=== PATIENT | female | born 1940 | race Caucasian/White ===

== ENCOUNTER 2023-05-12 09:01 | Day surgery (SDC) | payer MEDICARE, SELFPAY ==
[2023-05-12 09:21] VITALS: BP 181/92; PULSE 95; RESP 18; TEMP 36.4; O2SAT 96; BMI 26.9
[2023-05-12 10:22] VITALS: BP 181/92; PULSE 95; RESP 18; TEMP 36.4; O2SAT 96
== END 2023-05-12 10:23 | disposition home or self-care (01) ==
PROVIDERS: PCP Family Medicine; Visit Provider Ophthalmology
PROC: (CPT 66821; principal; 2023-05-12 09:00)
DX: H26.40 Unspecified secondary cataract (principal)
CPT/HCPCS: 66821

== ENCOUNTER 2024-01-27 22:12 | Inpatient (IN) | payer MEDICARE, SELFPAY ==
[2024-01-27 22:13] VITALS: BP 197/95; PULSE 90; RESP 26; TEMP 36.7; O2SAT 93; BMI 29.1
--- NOTE | 2024-01-27 22:20 | ECG_ITS ---
APPROVED REPORT Exam: Resting ECG HR:92 bpm ECG Measurements Heart Rate 92 AXES DC 142 P 84 QRSd 85 QRS 33 QT 343 T 53 QTc 392 Conclusion SINUS RHYTHM LOW QRS VOLTAGE IN EXTREMITY LEADS [QRS DEFLECTION < 0.5 mV IN LIMB LEADS] BORDERLINE ECG Electronically signed by : LUBA TAYLOR, 01/28/2024 13:32:20
--- NOTE | 2024-01-27 22:20 | PC.NURSE ---
rad finished with portable cxr. RT at bedside for 3x duoneb treatments.
[2024-01-27 22:21] VITALS: BMI 30.9
--- NOTE | 2024-01-27 22:22 | XR_ITS ---
PROCEDURE INFORMATION: Exam: XR Chest Exam date and time: 01/27/2024 10:21 PM Age: 84 years old Clinical indication: Shortness of breath; Additional info: SOA TECHNIQUE: Imaging protocol: Radiologic exam of the chest. Views: 1 view. COMPARISON: No relevant prior studies available. FINDINGS: Lungs: The lungs are hyperexpanded bilaterally consistent with mild COPD. The lungs are clear. Pleural spaces: There is no evidence for pneumothorax. Heart/Mediastinum: The heart size is within normal limits. Bones/joints: Unremarkable. IMPRESSION: 1. The lungs are clear. 2. The lungs are hyperexpanded bilaterally consistent with mild COPD. 3. There is no evidence for pneumothorax.
--- OUTSIDE RECORDS SUMMARY | 2024-01-27 22:22 | XMS_ITS ---
Author Name Bernardo Wiley Address [address] [place] [id number] Organization Unknown Address [address] [place] [id number] ALLERGIES AND ADVERSE REACTIONS No information ASSESSMENT No information CHIEF COMPLAINT No information MEDICATIONS No information OBJECTIVE DATA No information PHYSICAL EXAMINATION No information TREATMENT PLAN Planned Care Start Date Provider Encounter for Check-up [id number] AC Dye PROBLEMS No information RESULTS No information REVIEW OF SYSTEMS No information SUBJECTIVE DATA No information VITAL SIGNS No information
--- NOTE | 2024-01-27 22:26 | [facility].EDCP ---
Discharge Plan Disposition Patient Disposition: Admitted Prescriptions Prescriptions: No Action pravastatin 20 MG tablet 20 mg PO DAILY Referrals Follow up/Referrals: Hanna Dye MD [Primary Care Provider] - See instructions Clinical Impressions Clinical Impression: Acute exacerbation of chronic obstructive pulmonary disease, Respiratory failure with hypoxia and hypercapnia Discharge ED Provider: Maury Riley HPI <Maury Riley MD - Last Filed: 01/27/24 23:04> General Chief Complaint: Shortness of Breath/Dyspnea Stated Complaint: SOA, cough Time Seen by Provider: 01/27/24 22:14 History of Present Illness HPI narrative: Patient is a 84-year-old female largely healthy only takes cholesterol medicine at home multi pack-year smoker who presents emergency department for evaluation of shortness of breath and cough. Onset was acute over the last 3 days. Has had progressive shortness of breath. No chest pain. Has never been diagnosed with COPD and does not take any controller inhalers. No other acute complaints at this time. Related Data Home Medications Medication Instructions Recorded Confirmed pravastatin 20 mg tablet 20 mg PO DAILY Cholesterol 09/06/19 05/12/23 Allergies Allergy/AdvReac Type Severity Reaction Status Date / Time No Known Allergies Allergy Verified 01/27/24 22:26 PFSH <Maury Riley MD - Last Filed: 01/27/24 23:04> [facility] Disclaimer: The information contained in this section may have been updated after the patient was seen, as this information can be updated by other users. Medical History (Updated 01/27/24 @ 22:47 by Maury Riley MD) Hyperlipemia Cataract Surgical History Hx of cataract surgery Family History Other Family history of cancer Social History Smoking Status: Current every day smoker tobacco type: cigarettes packs per day: 1 alcohol intake: never current occupational status: retired Travel in the last 8 weeks: None household members: spouse housing: house caffeine: No <Maury Riley MD - Last Filed: 01/27/24 23:04> ROS Obtained: Yes Systems reviewed as appropriate & no additional complaints except as documented Physical Exam <Maury Riley MD - Last Filed: 01/27/24 23:04> General General appearance: alert and in distress Head Head exam: atraumatic and normocephalic Eye Eye exam: Present PERRL ENT ENT exam: Present mucous membranes moist Neck Neck exam: Present normal inspection Chest Chest inspection: Present normal inspection and symmetric chest wall rise Respiratory Respiratory exam: Present respiratory distress, wheezes, accessory muscle use and prolonged expiratory phase Cardiovascular Cardiovascular exam: Present regular rate and normal rhythm Abdominal Exam Abdominal exam: Present soft; Absent tenderness Extremities Exam Extremities exam: Present normal inspection and other (No lower extremity edema) Neurological Exam Neurological exam: Present alert Psychiatric Psychiatric exam: Present anxious Skin Skin exam: Present warm and dry HEART Score <Maury Riley MD - Last Filed: 01/27/24 23:04> HEART Score HEART Score assessment performed?: No History (anamnesis): Slightly suspicious ECG: Normal Age: >65 years Risk factors: No known risk factors <Ella Macias MD - Last Filed: 01/27/24 23:18> HEART Score HEART Score assessment performed?: Yes Troponin: </= normal limit HEART Score: 2 Critical Care <Maury Riley MD - Last Filed: 01/27/24 23:04> Critical Care Time Critical Care Time: Yes Attestation: On 01/27/24, the high probability of a clinically significant, sudden or life threatening deterioration of the following system(s) required my full and direct attention, intervention and personal management. The time I documented below is in addition to time spent performing reported procedures but includes the following listed in this critical care notation. Total Time Total Critical Care Time: 35 Medical Decision Making <Maury Riley MD - Last Filed: 01/27/24 23:04> [place] Inquiry Pt receiving controlled substance: No Vital Signs Vital Signs: 01/27/24 22:13 01/27/24 22:31 01/27/24 22:55 Temperature 98.0 F Temperature Source Oral Pulse Rate 93 H 101 H Pulse Rate [Left] 90 Respiratory Rate 26 H Blood Pressure [Right Arm] 197/95 H Blood Pressure Mean [Right Arm] 129 02 Sat by Pulse Oximetry 93 L Oxygen Delivery Method Nasal Cannula Oxygen Flow Rate (LPM) 2 Lab Data Labs: Lab Results 01/27/24 22:26: WBC 10.2, RBC 4.38, Hgb 14.6, Hct 43.9, MCV 100.3 H, MCH 33.5 H, MCHC 33.4, RDW 13.2, Plt Count 227, MPV 7.4, Neut % (Auto) 84.4 H, Lymph % (Auto) 11.0, Freeborn % (Auto) 3.9, Eos % (Auto) 0.3, Baso % (Auto) 0.4, Neut # (Auto) 8.6 H, Lymph # (Auto) 1.1, Freeborn # (Auto) 0.4, Eos # (Auto) 0.0, Baso # (Auto) 0.0, Sodium 134 L, Potassium 4.1, Chloride 97 L, Carbon Dioxide 29, Anion Gap 12.1, BUN 18 H, Creatinine 0.70, Estimated Creat Clear 54, Estimated GFR 80, Est GFR ( Amer) 97, Glucose 142 H, Lactate 1.4, Calcium 9.2, Total Bilirubin 0.6, AST 35, ALT 25, Alkaline Phosphatase 153 H, Troponin I < 0.01, NT-Pro-B Natriuret Pep 341, Total Protein 7.4, Albumin 4.4, Globulin 3.0, Albumin/Globulin Ratio 1.5 01/27/24 22:27: SARS-CoV-2 (PCR) Not detected, Influenza A Untype (PCR) Not detected, Influenza Type B (PCR) Not detected 01/27/24 22:28: VBG pH 7.29 L, VBG pCO2 51.7 H, VBG pO2 38.5, VBG HCO3 24.1, VBG Total CO2 25.7, VBG O2 Saturation 71.5 H, VBG Base Excess -2.5 L, VBG Lactic Acid 1.6 01/27/24 22:26 01/27/24 22:26 Response Orders (Tests/Meds): ED MEDICATIONS Generic Name Dose Route Start Last Admin Trade Name Freq PRN Reason Stop Dose Admin Acetaminophen 650 mg 01/27/24 23:01 Acetaminophen 325mg Tab PO 02/26/24 23:00 Q4HP PRN Fever or Mild Pain (1-3) Albuterol/Ipratropium 3 ml 01/27/24 23:06 Ipratropium/Albuterol 3 Ml Neb 02/26/24 23:05 Q6HP PRN Shortness Of Breath Enoxaparin Sodium 40 mg 01/28/24 09:00 Enoxaparin 40mg/0.4ml Syringe SQ 02/27/24 08:59 DAILY ESPERANZA Magnesium Sulfate 2 gm in 50 mls @ 50 mls/hr 01/27/24 22:39 01/27/24 22:43 Magnesium Sulfate 2gm/50ml Premix IV 01/27/24 23:38 50 mls/hr ONCE ONE Administration Sodium Chloride 1,000 mls @ 50 mls/hr 01/27/24 23:15 Sod Chlor 0.9% 1000ml Bag IV 02/26/24 23:14 .Q20H ESPERANZA Morphine Sulfate 2 mg 01/27/24 23:01 Morphine 2mg/Ml Syringe IV 02/26/24 23:00 Q2HP PRN Severe Pain (7-10) Nicotine 21 mg 01/27/24 23:01 Nicotine 21mg/24hr Patch TD 02/26/24 23:00 DAILYP PRN Nicotine Cravings Ondansetron HCl 4 mg 01/27/24 23:01 Ondansetron 4mg/2ml Vial IV 02/26/24 23:00 Q8HP PRN Nausea Pantoprazole Sodium 40 mg 01/28/24 09:00 Pantoprazole 40mg Tablet PO 02/27/24 08:59 DAILY ESPERANZA Discontinued Medications Generic Name Dose Route Start Last Admin Trade Name Freq PRN Reason Stop Dose Admin Albuterol/Ipratropium 9 ml 01/27/24 22:24 01/27/24 22:31 Ipratropium/Albuterol 3 Ml [facility] hospital 01/27/24 22:25 9 ml ONCE ONE Administration Azithromycin 500 mg/ Sodium 250 mls @ 250 mls/hr 01/27/24 22:25 Chloride IV 01/27/24 22:26 ONCE ONE Magnesium Sulfate 2 gm 01/27/24 22:24 01/27/24 22:47 Magnesium Sulfate 1gm/2ml Vial IM 01/27/24 22:25 Not Given ONCE ONE Methylprednisolone Sodium Succinate 125 mg 01/27/24 22:24 01/27/24 22:41 Methylprednisolone Sod Succ 125mg Vial IV 01/27/24 22:25 125 mg ONCE ONE Administration Miscellaneous 1 each 01/27/24 22:45 Pha To Nursing Instruction NOTAPPLIC 01/27/24 22:46 ONCE ONE ORDERS Category Date Time Status Pulmonology Consult [Consult to Pulmonology] [CONS] Cons 01/27/24 23:06 Active Routine Chest XR -- portable [XR chest portable] Stat Exams 01/27/24 22:22 Taken POCUS Point of Care (ER Only) Stat Exams 01/27/24 22:29 Ordered BNP [NT Pro Brain Natriuretic Pep.] Stat Lab 01/27/24 22:26 Completed Complete Blood Count Auto Diff AMLAB Lab 01/28/24 06:00 Ordered Complete Blood Count Auto Diff Stat Lab 01/27/24 22:26 Completed Comprehensive Metabolic Panel AMLAB Lab 01/28/24 06:00 Ordered Comprehensive Metabolic Panel Stat Lab 01/27/24 22:26 Completed Lactic Acid Stat Lab 01/27/24 22:26 Completed Magnesium AMLAB Lab 01/28/24 06:00 Ordered Rapid PCR Covid and Flu A/B Stat Lab 01/27/24 22:27 Completed Troponin I Q3H Lab 01/28/24 01:30 Ordered Troponin I Q3H Lab 01/28/24 04:30 Ordered Troponin I Stat Lab 01/27/24 22:26 Completed Blood Culture Stat Micro 01/27/24 22:29 Received VBG [Venous Blood Gas] Stat RT 01/27/24 22:28 Completed ECG Data Tracing #1: ECG Narrative: Independently interpreted by me rate is 92, rhythm is regular, axis normal, no ST elevation in anatomical contiguous leads, significant chatter. QTc 392. MDM Narrative Medical Decision Narrative: In summary patient is a 84-year-old female past medical history described above who presents emergency department for evaluation of shortness of breath and cough. Patient is hemodynamically stable upon arrival, hypoxic in the low 80s requiring 2 L nasal cannula greater than 90% saturations. Patient has prolonged x-ray phase and diffuse wheezing. I suspect she has undiagnosed COPD with acute exacerbation. Differential includes viral COPD exacerbation versus pneumonia, among others. Little concern for ACS as she has no chest pain. Workup will be conducted with hematologic labs, chest x-ray, EKG, troponin, VBG. Initial interventions include DuoNebs x 3, azithromycin, methylprednisolone. [id number] ultrasound at bedside shows no large pericardial effusion however images were otherwise technically inadequate therefore no formal note is warranted. Aggressive volume resuscitation will be deferred given that patient appears euvolemic. Initial workup reviewed by me, hematologic labs have no significant leukocytosis or anemia, there is a hypercarbic acidosis consistent with her COPD exacerbation that is mild 7.29 pH. Patient is severely anxious at bedside and I do not think will tolerate BiPAP. This will be deferred given the 1 her lungs opened up from DuoNebs and steroids she will likely increase her ventilation and breathe this off on her own. She does not have any STEVEN or critical electrolyte abnormality, COVID and influenza negative. The case was discussed with hospital medicine regarding management who admit the patient their service for continued evaluation at this time. <Ella Macias MD - Last Filed: 01/27/24 23:18> Vital Signs Vital Signs: 01/27/24 22:13 01/27/24 22:31 01/27/24 22:55 Temperature 98.0 F Temperature Source Oral Pulse Rate 93 H 101 H Pulse Rate [Left] 90 Respiratory Rate 26 H Blood Pressure [Right Arm] 197/95 H Blood Pressure Mean [Right Arm] 129 02 Sat by Pulse Oximetry 93 L Oxygen Delivery Method Nasal Cannula Oxygen Flow Rate (LPM) 2 Lab Data Labs: Lab Results 01/27/24 22:26: WBC 10.2, RBC 4.38, Hgb 14.6, Hct 43.9, MCV 100.3 H, MCH 33.5 H, MCHC 33.4, RDW 13.2, Plt Count 227, MPV 7.4, Neut % (Auto) 84.4 H, Lymph % (Auto) 11.0, Freeborn % (Auto) 3.9, Eos % (Auto) 0.3, Baso % (Auto) 0.4, Neut # (Auto) 8.6 H, Lymph # (Auto) 1.1, Freeborn # (Auto) 0.4, Eos # (Auto) 0.0, Baso # (Auto) 0.0, Sodium 134 L, Potassium 4.1, Chloride 97 L, Carbon Dioxide 29, Anion Gap 12.1, BUN 18 H, Creatinine 0.70, Estimated Creat Clear 54, Estimated GFR 80, Est GFR ( Amer) 97, Glucose 142 H, Lactate 1.4, Calcium 9.2, Total Bilirubin 0.6, AST 35, ALT 25, Alkaline Phosphatase 153 H, Troponin I < 0.01, NT-Pro-B Natriuret Pep 341, Total Protein 7.4, Albumin 4.4, Globulin 3.0, Albumin/Globulin Ratio 1.5 01/27/24 22:27: SARS-CoV-2 (PCR) Not detected, Influenza A Untype (PCR) Not detected, Influenza Type B (PCR) Not detected 01/27/24 22:28: VBG pH 7.29 L, VBG pCO2 51.7 H, VBG pO2 38.5, VBG HCO3 24.1, VBG Total CO2 25.7, VBG O2 Saturation 71.5 H, VBG Base Excess -2.5 L, VBG Lactic Acid 1.6 Response Orders (Tests/Meds): ED MEDICATIONS Generic Name Dose Route Start Last Admin Trade Name Freq PRN Reason Stop Dose Admin Acetaminophen 650 mg 01/27/24 23:01 Acetaminophen 325mg Tab PO 02/26/24 23:00 Q4HP PRN Fever or Mild Pain (1-3) Albuterol/Ipratropium 3 ml 01/27/24 23:06 Ipratropium/Albuterol 3 Ml Neb IH 02/26/24 23:05 Q6HP PRN Shortness Of Breath Enoxaparin Sodium 40 mg 01/28/24 09:00 Enoxaparin 40mg/0.4ml Syringe SQ 02/27/24 08:59 DAILY ESPERANZA Magnesium Sulfate 2 gm in 50 mls @ 50 mls/hr 01/27/24 22:39 01/27/24 22:43 Magnesium Sulfate 2gm/50ml Premix IV 01/27/24 23:38 50 mls/hr ONCE ONE Administration Sodium Chloride 1,000 mls @ 50 mls/hr 01/27/24 23:15 Sod Chlor 0.9% 1000ml Bag IV 02/26/24 23:14 .Q20H ESPERANZA Morphine Sulfate 2 mg 01/27/24 23:01 Morphine 2mg/Ml Syringe IV 02/26/24 23:00 Q2HP PRN Severe Pain (7-10) Nicotine 21 mg 01/27/24 23:01 Nicotine 21mg/24hr Patch TD 02/26/24 23:00 DAILYP PRN Nicotine Cravings Ondansetron HCl 4 mg 01/27/24 23:01 Ondansetron 4mg/2ml Vial IV 02/26/24 23:00 Q8HP PRN Nausea Pantoprazole Sodium 40 mg 01/28/24 09:00 Pantoprazole 40mg Tablet PO 02/27/24 08:59 DAILY ESPERANZA Discontinued Medications Generic Name Dose Route Start Last Admin Trade Name Sree PRN Reason Stop Dose Admin Albuterol/Ipratropium 9 ml 01/27/24 22:24 01/27/24 22:31 Ipratropium/Albuterol 3 Ml Neb IH 01/27/24 22:25 9 ml ONCE ONE Administration Azithromycin 500 mg/ Sodium 250 mls @ 250 mls/hr 01/27/24 22:25 Chloride IV 01/27/24 22:26 ONCE ONE Magnesium Sulfate 2 gm 01/27/24 22:24 01/27/24 22:47 Magnesium Sulfate 1gm/2ml Vial IM 01/27/24 22:25 Not Given ONCE ONE Methylprednisolone Sodium Succinate 125 mg 01/27/24 22:24 01/27/24 22:41 Methylprednisolone Sod Succ 125mg Vial IV 01/27/24 22:25 125 mg ONCE ONE Administration Miscellaneous 1 each 01/27/24 22:45 Pha To Nursing Instruction NOTAPPLIC 01/27/24 22:46 ONCE ONE ORDERS Category Date Time Status Pulmonology Consult [Consult to Pulmonology] [CONS] Cons 01/27/24 23:06 Active Routine Chest XR -- portable [XR chest portable] Stat Exams 01/27/24 22:22 Taken POCUS Point of Care (ER Only) Stat Exams 01/27/24 22:29 Ordered BNP [NT Pro Brain Natriuretic Pep.] Stat Lab 01/27/24 22:26 Completed Complete Blood Count Auto Diff AMLAB Lab 01/28/24 06:00 Ordered Complete Blood Count Auto Diff Stat Lab 01/27/24 22:26 Completed Comprehensive Metabolic Panel AMLAB Lab 01/28/24 06:00 Ordered Comprehensive Metabolic Panel Stat Lab 01/27/24 22:26 Completed Lactic Acid Stat Lab 01/27/24 22:26 Completed Magnesium AMLAB Lab 01/28/24 06:00 Ordered Rapid PCR Covid and Flu A/B Stat Lab 01/27/24 22:27 Completed Troponin I Q3H Lab 01/28/24 01:30 Ordered Troponin I Q3H Lab 01/28/24 04:30 Ordered Troponin I Stat Lab 01/27/24 22:26 Completed Blood Culture Stat Micro 01/27/24 22:29 Received VBG [Venous Blood Gas] Stat RT 01/27/24 22:28 Completed MDM Narrative Medical Decision Narrative: In summary patient is a 84-year-old female past medical history described above who presents emergency department for evaluation of shortness of breath and cough. Patient is hemodynamically stable upon arrival, hypoxic in the low 80s requiring 2 L nasal cannula greater than 90% saturations. Patient has prolonged x-ray phase and diffuse wheezing. I suspect she has undiagnosed COPD with acute exacerbation. Differential includes viral COPD exacerbation versus pneumonia, among others. Little concern for ACS as she has no chest pain. Workup will be conducted with hematologic labs, chest x-ray, EKG, troponin, VBG. Initial interventions include DuoNebs x 3, azithromycin, methylprednisolone. [id number] ultrasound at bedside shows no large pericardial effusion however images were otherwise technically inadequate therefore no formal note is warranted. Aggressive volume resuscitation will be deferred given that patient appears euvolemic. Initial workup reviewed by me, hematologic labs have no significant leukocytosis or anemia, there is a hypercarbic acidosis consistent with her COPD exacerbation that is mild 7.29 pH. Patient is severely anxious at bedside and I do not think will tolerate BiPAP. This will be deferred given the 1 her lungs opened up from DuoNebs and steroids she will likely increase her ventilation and breathe this off on her own. She does not have any STEVEN or critical electrolyte abnormality, COVID and influenza negative. The case was discussed with hospital medicine regarding management who admit the patient their service for continued evaluation at this time. I did not see or evaluate this patient but troponin was pending at admission and I did obtain this value, which was negative and complete the HEART score which was 2, the values aside from troponin on HEART score were put in by prior provider. Patient admitted for further care.
--- NOTE | 2024-01-27 22:28 | PC.NURSE ---
cultures collected x 2 sets. no blue bands availab.improvised per primary nsg
[2024-01-27 22:31] VITALS: PULSE 93
[2024-01-27 22:31] LABS: Coronavirus 19, PCR Not Detected (NotDetected); Influenza A, PCR Not Detected (NotDetected); Influenza B, PCR Not Detected (NotDetected)
[2024-01-27] MEDS: IPRATROPIUM/ALBUTEROL 3 ML NEB 9 ML IH (22:31)
[2024-01-27 22:32] LABS: Lactate Venous 1.6 mmol/L (0.4-2.0); VBG Base Excess -2.5 mmol/L (-2.4-2.3); VBG HCO3 24.1 mmol/L (23-30); VBG Oxygen Saturation 71.5 % (50-70); VBG PH 7.29 mmol/L (7.31-7.41); VBG PO2 38.5 mmol/L (28-40); VBG Total CO2 25.7 mmol/L (23-27)
[2024-01-27 22:34] LABS: VBG PCO2 51.7 mmol/L (35-51)
--- NOTE | 2024-01-27 22:34 | PC.NURSE ---
vbg result obtained from RT and given to MD at this time. V/O received to keep oxygen saturation 88-92%.
--- NOTE | 2024-01-27 22:39 | PC.NURSE ---
at bedside. POCUS performed.
[2024-01-27] MEDS: METHYLPREDNISOLONE SOD SUCC 125MG VIAL 125 MG IV (22:41)
[2024-01-27 22:43] LABS: Lactic Acid 1.4 mmol/L (0.7-2.1)
[2024-01-27] MEDS: MAGNESIUM SULFATE IN WATER 2 GM/50 ML PIGGYBACK IV (22:43)
[2024-01-27 22:46] LABS: Chloride 97 mmol/L (98-107); Potassium 4.1 mmoL/L (3.5-5.1); Sodium 134 mmol/L (136-145)
[2024-01-27 22:49] LABS: Alanine Aminotransferase 25 U/L (12-78); Albumin Level 4.4 g/dl (3.5-5.0); Albumin/Globulin Ratio 1.5 (1.1-1.8); Alkaline Phosphatase 153 U/L (38-126); Anion Gap 12.1 mEq/L (5-15); Aspartate Amino Transferase 35 U/L (14-36); Bilirubin,Total 0.6 mg/dl (0.2-1.3); Blood Urea Nitrogen 18 mg/dl (7-17); Carbon Dioxide 29 mmol/L (22.0-30.0); Creatinine Clearance Estimated 54 mL/min (50-200); Estimated Glomerular Filt Rate 80 ml/min (>60); GFR (African American) 97 ML/MIN (>60); Total Protein,Serum 7.4 g/dl (6.3-8.2)
[2024-01-27 22:50] LABS: Calcium 9.2 mg/dl (8.4-10.2); Glucose 142 mg/dl (74-100)
[2024-01-27 22:52] LABS: NT Pro Brain Natriuretic Pep. 341 pg/mL (0-450)
[2024-01-27 22:55] VITALS: PULSE 101; O2SAT 96
[2024-01-27 22:55] LABS: Basophils % 0.4 % (0.1-2.0); Eosinophils % 0.3 % (0.1-12.0); Hematocrit 43.9 % (37.0-47.0); Hemoglobin 14.6 g/dL (12.2-16.2); Lymphocytes # 1.1 K/mm3 (0.7-4.5); Mean Corpuscular HGB Conc 33.4 g/dL (31.8-35.4); Mean Corpuscular Hemoglobin 33.5 pg (27.0-31.2); Mean Corpuscular Volume 100.3 fl (81-99); Mean Platelet Volume 7.4 fl (7.4-10.4); Monocytes # 0.4 K/mm3 (0.1-1.0); Monocytes % 3.9 % (1.7-9.3); Neutrophils # 8.6 K/mm3 (1.8-7.8); Neutrophils % 84.4 % (37.0-80.0); Platelet Count 227 K/mm3 (142-424); Red Blood Count 4.38 M/mm3 (4.20-5.40); Red Cell Distribution Width 13.2 % (11.5-17.5); White Blood Count 10.2 K/mm3 (4.8-10.8)
--- NOTE | 2024-01-27 23:09 | EXP.HP ---
History of Present Illness *Admission Date: 01/27/24 *Reason for visit:: SOB *History of present illness: This is a 84-year-old female largely with apparently no previous medical history only that long standing heavy smoaker , with more than a pack per day per more than 30 years, ahe also takes cholesterol medicine at home, who presented emergency department for evaluation of shortness of breath and cough. History obtained by interviewing patient, Daughter who is also a POA at bedside contribute with history patient is [place]. Onset was acute over the last week, with progressively intensification of cough and SOB in the last 3 days. No chest pain. no fever. Has never been diagnosed with COPD and does not take any controller inhalers. No other acute complaints at this time. Admitted for continuous inpatient management. [facility] Disclaimer: The information contained in this section may have been updated after the patient was seen, as this information can be updated by other users. Medical History (Updated 01/28/24 @ 06:52 by Xavier Sanchez APRN) Hyperlipemia Cataract Surgical History Hx of cataract surgery Family History Other Family history of cancer Social History (Updated 01/28/24 @ 00:10 by Tesha Parham RN) Smoking Status: Current every day smoker tobacco type: cigarettes packs per day: 1 alcohol intake: never current occupational status: retired Travel in the last 8 weeks: None household members: spouse housing: house caffeine: No Review of Systems Review of Systems Review of systems:: pertinent systems reviewed and negative unless documented below Meds Home Medications and Allergies Home Medications Medication Instructions Recorded Confirmed Type pravastatin 20 mg tablet 20 mg PO DAILY Cholesterol 09/06/19 01/28/24 History New Prescriptions to Start Prescriptions: Allergies Allergy/AdvReac Type Severity Reaction Status Date / Time No Known Allergies Allergy Verified 01/27/24 22:26 Exam Data for Last 24 hours Vital signs and Labs for Last 24 Hours: Temp Pulse Resp BP Pulse Ox O2 Del Method O2 Flow Rate 98.0 F 101 H 26 H 197/95 H 93 L Nasal Cannula 2 01/27/24 22:13 01/27/24 22:55 01/27/24 22:13 01/27/24 22:13 01/27/24 22:13 01/27/24 22:13 01/27/24 22:13 Laboratory Results - last 24 hr 01/27/24 22:26: WBC 10.2, RBC 4.38, Hgb 14.6, Hct 43.9, MCV 100.3 H, MCH 33.5 H, MCHC 33.4, RDW 13.2, Plt Count 227, MPV 7.4, Neut % (Auto) 84.4 H, Lymph % (Auto) 11.0, [place] % (Auto) 3.9, Eos % (Auto) 0.3, Baso % (Auto) 0.4, Neut # (Auto) 8.6 H, Lymph # (Auto) 1.1, [place] # (Auto) 0.4, Eos # (Auto) 0.0, Baso # (Auto) 0.0, Sodium 134 L, Potassium 4.1, Chloride 97 L, Carbon Dioxide 29, Anion Gap 12.1, BUN 18 H, Creatinine 0.70, Estimated Creat Clear 54, Estimated GFR 80, Est GFR ( Amer) 97, Glucose 142 H, Lactate 1.4, Calcium 9.2, Total Bilirubin 0.6, AST 35, ALT 25, Alkaline Phosphatase 153 H, NT-Pro-B Natriuret Pep 341, Total Protein 7.4, Albumin 4.4, Globulin 3.0, Albumin/Globulin Ratio 1.5 01/27/24 22:27: SARS-CoV-2 (PCR) Not detected, Influenza A Untype (PCR) Not detected, Influenza Type B (PCR) Not detected 01/27/24 22:28: VBG pH 7.29 L, VBG pCO2 51.7 H, VBG pO2 38.5, VBG HCO3 24.1, VBG Total CO2 25.7, VBG O2 Saturation 71.5 H, VBG Base Excess -2.5 L, VBG Lactic Acid 1.6 I & O for Last 24 hours: Intake & Output 01/24/24 01/25/24 01/26/24 01/27/24 23:59 23:59 23:59 23:59 Weight 79.379 kg Constitutional Constitutional: moderate distress, obese and chronically ill appearing *Routine HEENT Exam Head: Present normocephalic Eye: Present EOMI and PERRL ENT: Present mucous membranes moist *Routine Neck Exam Neck: Present supple; Absent lymphadenopathy *Routine Respiratory Exam Respiratory: Present decreased breath sounds, CTA bilaterally, respiratory distress, rhonchi, wheezes, diminished air movement and symmetric chest movement *Routine Cardiovascular Exam Cardiovascular: Present RRR, Normal S1, Normal S2 and tachycardia *Routine Abdominal Exam Abdominal: Present soft, normoactive bowel sounds and obese; Absent tenderness *Routine Rectal Exam Rectal:: deferred *Routine Genitalia Exam Genitalia:: deferred *Routine Extremities Exam Extremities: Absent cyanosis, clubbing or edema *Routine Skin Exam Skin: Present warm; Absent rash *Routine Neurological Exam Neurological: Present alert, oriented X3, normal reflexes and moving all extremities Routine Psychiatric Exam Psychiatric: Present anxious H&P: Result Imaging and Cardiology EKG: Status: image reviewed by me, Preliminary report and final report Chest x-ray: Status: image reviewed by me, Preliminary report and final report Assessment and Plan *Assessment and plan (1) Respiratory failure with hypoxia and hypercapnia: Status: Acute Qualifiers: Chronicity: acute Qualified Code(s): J96.01 - Acute respiratory failure with hypoxia; J96.02 - Acute respiratory failure with hypercapnia Category: Medical Code(s): J96.91 - Respiratory failure, unspecified with hypoxia; J96.92 - Respiratory failure, unspecified with hypercapnia (2) Acute exacerbation of chronic obstructive pulmonary disease: Status: Acute Category: Medical Code(s): J44.1 - Chronic obstructive pulmonary disease with (acute) exacerbation (3) Upper respiratory infection, viral: Status: Acute Category: Medical Code(s): J06.9 - Acute upper respiratory infection, unspecified (4) Hyperlipemia: Status: Acute Qualifiers: Hyperlipidemia type: unspecified Qualified Code(s): E78.5 - Hyperlipidemia, unspecified Category: Medical Code(s): E78.5 - Hyperlipidemia, unspecified (5) Current smoker: Status: Acute Category: Social Hx Code(s): F17.200 - Nicotine dependence, unspecified, uncomplicated Plan 84-year-old female largely with apparently no previous medical history only that long standing heavy smoker , with more than a pack per day per more than 30 years, she also takes cholesterol medicine at home, who presented emergency department for evaluation of shortness of breath and cough. Initial workup reviewed by me, hematologic labs have no significant leukocytosis or anemia, there is a hypercarbic acidosis consistent with her COPD exacerbation that is mild 7.29 pH. ED treatment included DuoNebs x 3, azithromycin, methylprednisolone. patient does not improved significantly and remains on 3L NC, Due to new oxygen demands, no complete resolve of symptoms and high risk of decompensation, discussion was made with ED for admission. Agreed for it. Plan as follow: -Acute hypoxia and hypercapnia respiratory failure: Suspected exacerbation of COPD. Patient has not previous diagnosis of asthma or COPD. upper respiratory viral infection with cough and congestion Admit patient for continuous monitoring And started on continuous oxygen by nasal cannula. Currently on 3 L. Respiratory to assist with care. Wean off as tolerated Pulmonology consult DuoNeb every 6 Decadron one-time 8 mg IV. Continue with 6 mg daily Doxycycline 100 mg IV twice daily for COPD exacerbation Sputum culture pending. Blood culture pending Full respiratory panel pending Monitor for sepsis. Rest of the vital signs. Repeat labs in the morning Chest x-ray reviewed. Repeat blood gas in the morning -History of hyperlipidemia: Resume home pravastatin Currently heavy smoker: Education provided to patient and family about smoke cessation. Discussed strict need for smoke cessation including medications. On nicotine patch daily Lovenox for DVT prophylaxis. On Protonix Full code Regular cardiac diet
[2024-01-27 23:10] LABS: Troponin I < 0.01 ng/ml (0.00-0.034)
--- NOTE | 2024-01-27 23:28 | PC.NURSE ---
I called and requested a bed for admission for COPD exacerbation.
[2024-01-27] MEDS: AZITHROMYCIN 500 MG in 0.9 % SODIUM CHLORIDE 250 ML 250 MG IV (23:31)
--- NOTE | 2024-01-27 23:37 | PC.NURSE ---
Report called to Tesha HARRISON
--- NOTE | 2024-01-27 23:46 | PC.NURSE ---
0238 RECEIVED PHONE REPORT FROM SCAR RN/ED NURSE. PATIENT IS 84 YO FEMALE. DIAGNOSIS COPD EXACERBATION.
--- NOTE | 2024-01-27 23:52 | PC.NURSE ---
Patient arrived to floor via stretcher from ED at 23:50.
[2024-01-27 23:53] VITALS: BP 147/82; PULSE 95; RESP 20; TEMP 36.6
[2024-01-28] VITALS (14 sets, daily range): BP systolic 132–157; BP diastolic 68–94; PULSE 80–128; RESP 16–24; TEMP 36.6–37.6; O2SAT 90–96; BMI 28.8
[2024-01-28] MEDS: 0.9 % SODIUM CHLORIDE 1000ML 1,000 ML 50 ML IV (00:43)
[2024-01-28 01:57] LABS: Troponin I < 0.01 ng/ml (0.00-0.034)
[2024-01-28] MEDS: IPRATROPIUM/ALBUTEROL 3 ML NEB IH ×4 (02:06→18:05)
[2024-01-28] MEDS: DEXAMETHASONE 4MG/ML 1ML VIAL 8 MG IV (02:16)
[2024-01-28] MEDS: DOXYCYCLINE HYCLATE 100 MG in 0.9 % SODIUM CHLORIDE 250 ML 166.667 MG IV ×3 (02:16→22:12)
[2024-01-28 04:49] LABS: Adenovirus,PCR Not Detected (NotDetected); Bordetella Pertussis Not Detected (NotDetected); Chlamydophila Pneumoniae, PCR Not Detected (NotDetected); Coronavirus 19, PCR Not Detected (NotDetected); Coronavirus 229E Not Detected (NotDetected); Coronavirus NL63 Not Detected (NotDetected); Coronavirus OC43 Not Detected (NotDetected); Coronovirus HKU1,PCR Not Detected (NotDetected); Influenza A, PCR Not Detected (NotDetected); Influenza AH1, 2009 Not Detected (NotDetected); Influenza AH1, PCR Not Detected (NotDetected); Influenza AH3,PCR Not Detected (NotDetected); Influenza B, PCR Not Detected (NotDetected); Mycoplasma Pneumoniae, PCR Not Detected (NotDetected); Parainfluenza 1, PCR Not Detected (NotDetected); Parainfluenza 2, PCR Not Detected (NotDetected); Parainfluenza 3, PCR Not Detected (NotDetected); Parainfluenza 4, PCR Not Detected (NotDetected); Respiratory Syncytial Virus Not Detected (NotDetected); Rhinovirus/Enterovirus Not Detected (NotDetected)
[2024-01-28 04:52] LABS: Chloride 100 mmol/L (98-107); Potassium 3.9 mmoL/L (3.5-5.1); Sodium 135 mmol/L (136-145)
[2024-01-28 04:54] LABS: Alanine Aminotransferase 24 U/L (12-78); Alkaline Phosphatase 146 U/L (38-126); Anion Gap 11.9 mEq/L (5-15); Aspartate Amino Transferase 30 U/L (14-36); Bilirubin,Total 0.3 mg/dl (0.2-1.3); Blood Urea Nitrogen 17 mg/dl (7-17); Carbon Dioxide 27 mmol/L (22.0-30.0); Creatinine Clearance Estimated 50 mL/min (50-200); Estimated Glomerular Filt Rate 80 ml/min (>60); GFR (African American) 97 ML/MIN (>60)
[2024-01-28 04:55] LABS: Albumin Level 4.1 g/dl (3.5-5.0); Albumin/Globulin Ratio 1.5 (1.1-1.8); Globulin 2.7 g/dL (1.3-3.2); Glucose 223 mg/dl (74-100); Magnesium 2.4 mg/dl (1.6-2.3); Total Protein,Serum 6.8 g/dl (6.3-8.2)
[2024-01-28 05:07] LABS: Troponin I < 0.01 ng/ml (0.00-0.034)
[2024-01-28 05:13] LABS: Basophils % 0.1 % (0.1-2.0); Eosinophils % 0.1 % (0.1-12.0); Hematocrit 40.3 % (37.0-47.0); Hemoglobin 13.4 g/dL (12.2-16.2); Lymphocytes # 0.3 K/mm3 (0.7-4.5); Lymphocytes % 3.1 % (10-50); Mean Corpuscular HGB Conc 33.3 g/dL (31.8-35.4); Mean Corpuscular Hemoglobin 33.1 pg (27.0-31.2); Mean Corpuscular Volume 99.6 fl (81-99); Mean Platelet Volume 7.3 fl (7.4-10.4); Monocytes # 0.1 K/mm3 (0.1-1.0); Monocytes % 1.1 % (1.7-9.3); Neutrophils # 8.8 K/mm3 (1.8-7.8); Neutrophils % 95.6 % (37.0-80.0); Platelet Count 185 K/mm3 (142-424); Red Blood Count 4.04 M/mm3 (4.20-5.40); Red Cell Distribution Width 13.2 % (11.5-17.5); White Blood Count 9.3 K/mm3 (4.8-10.8)
[2024-01-28 05:15] LABS: MANUAL DIFFERENTIAL MANUAL DIFFERENTIAL (MANUAL DIFF)
--- NOTE | 2024-01-28 05:16 | PC.NURSE ---
02 SATS 94-95% ON 2LNC. HAS EXP WHEEZES THROUGH OUT. HOB UP 35 DEGREES. C/O SOA WITH EXERTION. AMBULATORY TO THE BR WITH 1 ASSIST. DAUGHTER AT BEDSIDE.
[2024-01-28 05:45] LABS: Lymphocytes % 2 % (10-50); Neutrophils % 98 % (42-76); Platelet Estimate Normal; RBC Morphology Normal; Total Cells Counted 100
[2024-01-28 06:01] LABS: Human Metapneumovirus Detected (NotDetected)
[2024-01-28 06:22] LABS: ABG Base Excess -1.7 mmol/L (-2.4-2.3); ABG HCO3 23.8 mmhg (22.0-26.0); ABG Oxygen Saturation 96 % (90-100); ABG PCO2 43.4 mmhg (35.0-45.0); ABG PH 7.36 mmol/L (7.35-7.45); ABG PO2 84.2 mmhg (80-100); ABG TCO2 25.1 mmhg (23-27)
[2024-01-28 06:27] LABS: Allen's Test Acceptable; Oxygen 3L NC %; Source Left Radial
--- NOTE | 2024-01-28 07:48 | HMH.PHAINT1 ---
Pharmacy Intervention Comments: MEDICATION RECONCILIATION COMPLETED ON PATIENT USING EXTERNAL FILL HISTORY FROM PHARMACY. -TRI MAYES, ELSIED
[2024-01-28] MEDS: ENOXAPARIN 40MG/0.4ML SYRINGE 40 MG SQ (08:39)
[2024-01-28] MEDS: DEXAMETHASONE 4MG/ML 1ML VIAL 6 MG IV (08:39)
[2024-01-28] MEDS: PANTOPRAZOLE 40MG TABLET 40 MG PO (08:40)
--- NOTE | 2024-01-28 11:57 | PC.NURSE ---
Pt dropped to 89% on RA, pt put back on 2L NC.
--- NOTE | 2024-01-28 17:22 | P.PN_ITS ---
Subjective *Date: 01/28/24 *Time: 17:26 Interval history: seen on bedside, no acute events overnight, denied CP, N/V Exam Data for Last 24 hours Vital signs and Labs for Last 24 Hours: Temp Pulse Resp BP Pulse Ox O2 Del Method O2 Flow Rate 98.6 F 105 H 16 152/81 H 90 L Nasal Cannula 2 01/28/24 12:00 01/28/24 16:00 01/28/24 13:45 01/28/24 12:00 01/28/24 12:00 01/28/24 15:00 01/28/24 15:00 Laboratory Results - last 24 hr 01/27/24 22:26: WBC 10.2, RBC 4.38, Hgb 14.6, Hct 43.9, MCV 100.3 H, MCH 33.5 H, MCHC 33.4, RDW 13.2, Plt Count 227, MPV 7.4, Neut % (Auto) 84.4 H, Lymph % (Auto) 11.0, [place] % (Auto) 3.9, Eos % (Auto) 0.3, Baso % (Auto) 0.4, Neut # (Auto) 8.6 H, Lymph # (Auto) 1.1, [place] # (Auto) 0.4, Eos # (Auto) 0.0, Baso # (Auto) 0.0, Sodium 134 L, Potassium 4.1, Chloride 97 L, Carbon Dioxide 29, Anion Gap 12.1, BUN 18 H, Creatinine 0.70, Estimated Creat Clear 54, Estimated GFR 80, Est GFR ( Amer) 97, Glucose 142 H, Lactate 1.4, Calcium 9.2, Total Bilirubin 0.6, AST 35, ALT 25, Alkaline Phosphatase 153 H, Troponin I < 0.01, NT-Pro-B Natriuret Pep 341, Total Protein 7.4, Albumin 4.4, Globulin 3.0, Albumin/Globulin Ratio 1.5 01/27/24 22:27: SARS-CoV-2 (PCR) Not detected, Influenza A Untype (PCR) Not detected, Influenza Type B (PCR) Not detected 01/27/24 22:28: VBG pH 7.29 L, VBG pCO2 51.7 H, VBG pO2 38.5, VBG HCO3 24.1, VBG Total CO2 25.7, VBG O2 Saturation 71.5 H, VBG Base Excess -2.5 L, VBG Lactic Acid 1.6 01/28/24 00:00: Chlamy pneumoniae PCR Not detected, Adenovirus (PCR) Not detected, B. pertussis DNA (PCR) Not detected, Coronavirus OC43 (PCR) Not detected, Coronavirus HKU1 (PCR) Not detected, Coronavirus 229E (PCR) Not detected, SARS-CoV-2 (PCR) Not detected, Coronavirus NL63 (PCR) Not detected, Human Metapneumovir PCR Detected A, Influenza A (H1) PCR Not detected, Influ A (H1N1/09) PCR Not detected, Influenza A (H3) PCR Not detected, Influenza Type A (PCR) Not detected, Influenza Type B (PCR) Not detected, M. pneumoniae (PCR) Not detected, Parainfluenza 1 (PCR) Not detected, Parainfluenza 2 (PCR) Not detected, Parainfluenza 3 (PCR) Not detected, Parainfluenza 4 (PCR) Not detected, RSV (PCR) Not detected, Entero/Rhino (PCR) Not detected 01/28/24 01:25: Troponin I < 0.01 01/28/24 04:35: WBC 9.3, RBC 4.04 L, Hgb 13.4, Hct 40.3, MCV 99.6 H, MCH 33.1 H, MCHC 33.3, RDW 13.2, Plt Count 185, MPV 7.3 L, Neut % (Auto) 95.6 H, Lymph % (Auto) 3.1 L, [place] % (Auto) 1.1 L, Eos % (Auto) 0.1, Baso % (Auto) 0.1, Neut # (Auto) 8.8 H, Lymph # (Auto) 0.3 L, [place] # (Auto) 0.1, Eos # (Auto) 0.0, Baso # (Auto) 0.0, Total Counted 100, Neutrophils % (Manual) 98 H, Lymphocytes % (Manual) 2 L, Platelet Estimate Normal, RBC Morphology Normal, Sodium 135 L, Potassium 3.9, Chloride 100, Carbon Dioxide 27, Anion Gap 11.9, BUN 17, Creatinine 0.70, Estimated Creat Clear 50, Estimated GFR 80, Est GFR ( Amer) 97, Glucose 223 H D, Calcium 9.0, Magnesium 2.4 H, Total Bilirubin 0.3, AST 30, ALT 24, Alkaline Phosphatase 146 H, Troponin I < 0.01, Total Protein 6.8, Albumin 4.1, Globulin 2.7, Albumin/Globulin Ratio 1.5 01/28/24 06:00: Specimen Source Left radial, O2 % 3l nc, ABG pH 7.36, ABG pCO2 43.4, ABG pO2 84.2, ABG HCO3 23.8, ABG Total CO2 25.1, ABG O2 Saturation 96, ABG Base Excess -1.7, Alejandro Test Acceptable I & O for Last 24 hours: Intake & Output 01/25/24 01/26/24 01/27/24 01/28/24 23:59 23:59 23:59 23:59 Intake Total 1006 / 1006 Output Total 0 / 0 Balance 1006 / 1006 Weight 79.379 kg 73.618 kg Constitutional Constitutional: no acute distress *Routine HEENT Exam Head: Present normocephalic Eye: Present EOMI and PERRL ENT: Present mucous membranes moist *Routine Neck Exam Neck: Present supple; Absent lymphadenopathy *Routine Respiratory Exam Respiratory: Present diminished air movement *Routine Cardiovascular Exam Cardiovascular: Present RRR *Routine Abdominal Exam Abdominal: Present soft and normoactive bowel sounds; Absent tenderness *Routine Extremities Exam Extremities: Absent cyanosis, clubbing or edema *Routine Skin Exam Skin: Present warm; Absent rash *Routine Neurological Exam Neurological: Present alert and oriented X3 Assessment and Plan *Assessment and plan (1) Respiratory failure with hypoxia and hypercapnia: Status: Acute Qualifiers: Chronicity: acute Qualified Code(s): J96.01 - Acute respiratory failure with hypoxia; J96.02 - Acute respiratory failure with hypercapnia Category: Medical Code(s): J96.91 - Respiratory failure, unspecified with hypoxia; J96.92 - Respiratory failure, unspecified with hypercapnia (2) Acute exacerbation of chronic obstructive pulmonary disease: Status: Acute Category: Medical Code(s): J44.1 - Chronic obstructive pulmonary disease with (acute) exacerbation (3) Upper respiratory infection, viral: Status: Acute Category: Medical Code(s): J06.9 - Acute upper respiratory infection, unspecified (4) Hyperlipemia: Status: Acute Qualifiers: Hyperlipidemia type: unspecified Qualified Code(s): E78.5 - Hyperlipidemia, unspecified Category: Medical Code(s): E78.5 - Hyperlipidemia, unspecified (5) Current smoker: Status: Acute Category: Social Hx Code(s): F17.200 - Nicotine dependence, unspecified, uncomplicated Plan 84-year-old female largely with apparently no previous medical history only that long standing heavy smoker , with more than a pack per day per more than 30 years, she also takes cholesterol medicine at home, who presented emergency d epartment for evaluation of shortness of breath and cough Acute hypoxia and hypercapnia respiratory failure Suspected exacerbation of COPD. Patient has not previous diagnosis of asthma or COPD. upper respiratory viral infection with cough and congestion Currently on 3 L Pulmonology consult DuoNeb every 6 Decadron one-time 8 mg IV. Continue with 6 mg daily Doxycycline 100 mg IV twice daily for COPD exacerbation Sputum culture pending. Blood culture pending Full respiratory panel positive for human metapneumovirus -History of hyperlipidemia: Resume home pravastatin Currently heavy smoker On nicotine patch daily Lovenox for DVT prophylaxis. On Protonix Full code Regular cardiac diet continue breathing treatments and steroids, await pulmonary recommendations
--- NOTE | 2024-01-28 18:27 | PC.NURSE ---
A&Ox4, lungs diminished, pt remains on 2L of O2. Pt gets SOB with ambulation to and from the bathroom but ambulates well independently. Pts daughter requested that the patient wears a nicotine patch but the patient refused to wear one and stated that she does not need it. Family at bedside most of this shift. Pt resting comfortably in bed with no complaints at this time.
--- NOTE | 2024-01-28 18:46 | PC.NURSE ---
Rhythm change noted on tele. Notifying RT to get an EKG due to a rhythm change. Pt's heart rate is now in the 140's with complexes occasionally not having P waves. painter bottom aware.
--- NOTE | 2024-01-28 18:57 | ECG_ITS ---
APPROVED REPORT Exam: Resting ECG HR:147 bpm ECG Measurements Heart Rate 147 AXES QRSd 64 QRS 53 QT 270 T 58 QTc 354 Conclusion ATRIAL FIBRILLATION WITH RAPID VENTRICULAR RESPONSE LOW QRS VOLTAGE IN EXTREMITY LEADS [QRS DEFLECTION < 0.5 mV IN LIMB LEADS] UNCONFIRMED REPORT Electronically signed by : SOPHIA HARPER, 01/30/2024 06:52:08
--- NOTE | 2024-01-28 18:58 | ECG_ITS ---
APPROVED REPORT Exam: Resting ECG HR:144 bpm ECG Measurements Heart Rate 144 AXES QRSd 77 QRS 27 QT 266 T 42 QTc 349 Conclusion ATRIAL FIBRILLATION WITH RAPID VENTRICULAR RESPONSE LOW QRS VOLTAGE IN EXTREMITY LEADS [QRS DEFLECTION < 0.5 mV IN LIMB LEADS] MODERATE ST DEPRESSION [0.05+ mV ST DEPRESSION] ABNORMAL ECG UNCONFIRMED REPORT Electronically signed by : Av Perez MD 01/29/2024 08:45:58
[2024-01-28] MEDS: METOPROLOL TARTRATE 5MG/5ML VIAL 5 MG IV ×2 (19:15→20:23)
[2024-01-28] MEDS: PRAVASTATIN 20MG TAB 20 MG PO (21:08)
[2024-01-28] MEDS: clonazePAM 1MG TABLET 1 MG PO (22:12)
--- NOTE | 2024-01-28 23:16 | PC.NURSE ---
Spoke with John from [facility] about vancomycin dosage, confirmed dose ordered is correct.
[2024-01-28] MEDS: VANCOMYCIN HCL 1,500 MG in 0.9 % SODIUM CHLORIDE 250 ML 125 MG IV (23:55)
[2024-01-29] VITALS (14 sets, daily range): BP systolic 115–148; BP diastolic 62–81; PULSE 60–100; RESP 17–95; TEMP 36.3–37.2; O2SAT 90–99; BMI 29.0
[2024-01-29] MEDS: IPRATROPIUM/ALBUTEROL 3 ML NEB IH ×6 (00:25→22:09)
--- NOTE | 2024-01-29 05:10 | PC.NURSE ---
Pt has been oriented, pt has small spells of confusion, but easily reoriented, pt states I know when told. Daughter has remained at bedside. Pt is on 3L NC, O2 sat >90%. Audible wheezes, inspiratory/expiratory wheezing noted, [employer] aware of lung sounds. Pt ambulates to the bathroom with 1 assist. Pt very restless and anxious, continuously moving in bed. Pt was able to get some rest later in the shift. Pt continues to talk about going home. No complaints of pain. Call light in reach.
--- NOTE | 2024-01-29 08:48 | CA_ITS ---
APPROVED REPORT EXAM: Comprehensive 2D, Doppler, and color-flow Echocardiogram Acting Teacher: Lashell Cunningham RDCS Ht: 5 ft 3 in Wt: 163lbs BSA: 1.77 BP: 197/95 mmHg Indications: SOA,COPD, HEAVY SMOKER,LABORED RESPS DURING EXAM TDS M-Mode Dimensions RVDd 2.78 cm (0.9-2.6) LA Diam 2.58 cm (1.9-4.0) LVDd 5.05 cm (3.5-5.7) LVDs 3.73 cm (3.5-5.7) IVSd 0.68 cm (0.6-1.1) PWd 0.79 cm (0.6-1.1) EF (Teich) 51.00% FS 26.10% EDV (Teich) 121.00 mL TAPSE 2.58 (<1.7) ESV (Teich) 59.30 mL LV Diastology E Decel Time 217 (160-240 msec) E/A Ratio 1.2 Mitral Valve MV E Max Dain. 102.0 (40-130 cm/s) MV A Velocity 83.0 (40-130 cm/s) E/A Ratio 1.23 MV PHT 63.0 ms Left Ventricle The left ventricle is normal size. The left ventricular systolic function is normal. The left ventricular ejection fraction is within the normal range. There is increased LV wall thickness. There is normal LV segmental wall motion. The left ventricular diastolic function is normal. LVEF 55%. Right Ventricle The right ventricle is normal size. The right ventricular systolic function is normal. There is increased RV wall thickness. Atria The left atrium size is normal. The right atrium size is normal. There is no Doppler evidence of interatrial shunt. Aortic Valve The aortic valve is mildly thickened. There is no aortic valvular stenosis. No aortic regurgitation is present. Mitral Valve The mitral valve is normal in structure. No evidence of mitral valve stenosis. Mild mitral regurgitation noted. Tricuspid Valve The tricuspid valve leaflets are thin and pliable. Trace tricuspid regurgitation. There is insufficient TR jet to estimate RVSP. Pulmonic Valve The pulmonary valve is not well-visualized. Trace pulmonic regurgitation. Great Vessels The aortic root is normal in size. The ascending aorta is not well-visualized. IVC is normal in size and collapses >50% with inspiration. Pericardium Trivial anterior pericardial effusion. Other Information Study Quality: Technically Difficult Conclusion Technically difficult study due to poor acoustic windows. Normal biventricular systolic function. Mild MR. Trivial anterior pericardial effusion. Electronically signed by : Fabienne Castro MD 02/04/2024 20:26:39
[2024-01-29] MEDS: PANTOPRAZOLE 40MG TABLET 40 MG PO (09:02)
[2024-01-29] MEDS: ENOXAPARIN 40MG/0.4ML SYRINGE 40 MG SQ (09:03)
[2024-01-29] MEDS: DOXYCYCLINE HYCLATE 100 MG in 0.9 % SODIUM CHLORIDE 250 ML 166.667 MG IV (09:04)
[2024-01-29] MEDS: DEXAMETHASONE 4MG/ML 1ML VIAL 6 MG IV (09:04)
--- NOTE | 2024-01-29 09:14 | CT_ITS ---
FINAL REPORT TECHNIQUE: Thin section axial CT with contrast with multiplanar reconstruction. This study was performed with techniques to keep radiation doses as low as reasonably achievable (ALARA). Individualized dose reduction techniques using automated exposure control or adjustment of mA and/or kV according to the patient's size were employed. CLINICAL HISTORY: sob FINDINGS: Respiratory motion artifact limits evaluation of distal pulmonary vessels. No gross pulmonary embolism identified. Thoracic aorta shows no dissection or aneurysm. There are clustered nodular densities of the lower lobes and right middle lobe, greatest left lung base. Findings are compatible with bronchopneumonia and bronchiolitis. Note is made of emphysema. There is no significant pleural effusion. There is no significant pericardial effusion. No mediastinal or hilar adenopathy is present. IMPRESSION: No gross pulmonary embolism. Bibasilar pneumonia. Reviewed, Interpreted and Dictated by Salima Cruz MD Transcribed by Yue Boyd Authenticated and [facility]
--- NOTE | 2024-01-29 09:42 | EXP.PULM.CON ---
History of Present Illness History of present illness: Ms. Floyd is a 84-year-old female current smoker greater than [id number] smoking history, not using any at baseline presented to the ER with worsening respiratory distress and pulmonary was called for further evaluation and management. Patient was gradually worsening respiratory saline with worsening cough and productive phlegm prior to admission [facility] Disclaimer: The information contained in this section may have been updated after the patient was seen, as this information can be updated by other users. Medical History (Updated 01/29/24 @ 12:08 by Michele Hirsch MD) Pneumonia Dyspnea on exertion Atrial fibrillation with RVR Hyperlipemia Cataract Surgical History Hx of cataract surgery Family History Other Family history of cancer Social History (Updated 01/28/24 @ 00:10 by Tesha Parham RN) Smoking Status: Current every day smoker tobacco type: cigarettes packs per day: 1 alcohol intake: never current occupational status: retired Travel in the last 8 weeks: None household members: spouse housing: house caffeine: No Review of Systems Constitutional Constitutional: Reports anorexia, Reports body ache(s) and Reports fatigue Eyes Eyes: Denies eye discharge, Denies dry eyes, Denies irritation and Denies itchy eyes ENT Ears, Nose, Mouth, and Throat: Denies epistaxis, Denies facial pain, Denies lip swelling and Denies throat swelling *Cardiovascular Cardiovascular: Reports dyspnea and Reports dyspnea on exertion *Respiratory Respiratory: Reports chest congestion, Reports cough, Reports dyspnea, Reports dyspnea on exertion, Reports excessive phlegm production, Denies hemoptysis, Denies pain on inspiration, Denies pain with cough and Reports wheezing *Gastrointestinal Gastrointestinal: Denies abdominal pain, Denies belching and Denies cramping *Musculoskeletal Musculoskeletal: Reports back pain, Reports myalgias and Reports other (No small joint swelling or Pain) Psychiatric Psychiatric: Denies homicidal ideation and Denies suicidal ideation Endocrine Endocrine: Reports fatigue and Denies heat intolerance Hematologic/Lymphatic Hematologic/Lymphatic: Denies easy bleeding and Denies lymphadenopathy Allergic/Immunologic Allergic/Immunologic: Denies itchy eyes, Denies lip swelling, Denies throat swelling and Reports wheezing Pulmonology Exam Inpatient Vital signs and Labs for Last 24 Hours: Temp Pulse Resp BP Pulse Ox O2 Del Method O2 Flow Rate 98.7 F 100 H 17 139/74 97 Nasal Cannula 2 01/29/24 07:31 01/29/24 08:00 01/29/24 07:31 01/29/24 07:31 01/29/24 07:31 01/29/24 07:31 01/29/24 07:31 I & O for Labs for Last 24 Hours: Intake & Output 01/26/24 01/27/24 01/28/24 01/29/24 23:59 23:59 23:59 23:59 Intake Total 1247 / 1247 0 / 0 Output Total 0 / 0 0 / 0 Balance 1247 / 1247 0 / 0 Weight 175 lb 162 lb 4.798 oz 163 lb 12.8 oz Microbiology Reports for the Last 24 Hours: Microbiology 01/27/24 22:29 Blood Blood Culture - Preliminary 01/27/24 22:29 Blood Blood Culture - Preliminary NO GROWTH AFTER 24 HOURS Constitutional: Present moderate distress Head: Present normocephalic and atraumatic ENT: Present normal exam, normal oropharynx and mucous membranes moist Neck: Present normal inspection and full ROM Respiratory: Present prolonged expiratory phase, respiratory distress and wheezes; Absent able to speak in complete sentences Cardiac: Present S1/S2, Tachycardia and radial pulses present GI: Present soft and distention; Absent tenderness or guarding Rectal (female): Present deferred (female): Present deferred Skin: Present intact; Absent cyanosis or jaundice Neuro: Present alert, awake and oriented x 3 Extremities: Present normal inspection; Absent clubbing or cyanosis Psychiatric: Present normal affect and cooperative Meds Home Medications and Allergies Home Medications Medication Instructions Recorded Confirmed Type pravastatin 20 mg tablet 20 mg PO DAILY 09/06/19 01/28/24 History New Prescriptions to Start Prescriptions: Allergies Allergy/AdvReac Type Severity Reaction Status Date / Time No Known Allergies Allergy Verified 01/27/24 22:26 Results Laboratory Findings 01/28/24 04:35 01/28/24 04:35 ABG ABG pH 7.36 mmol/L (7.35-7.45) 01/28/24 06:00 ABG pCO2 43.4 mmhg (35.0-45.0) 01/28/24 06:00 ABG pO2 84.2 mmhg (80-100) 01/28/24 06:00 ABG O2 Saturation 96 % (90-100) 01/28/24 06:00 Abnormal lab findings: Abnormal Labs 01/27/24 01/27/24 01/28/24 22:26 22:28 00:00 RBC MCV 100.3 H MCH 33.5 H MPV Neut % (Auto) 84.4 H Lymph % (Auto) [facility] % (Auto) Neut # (Auto) 8.6 H Lymph # (Auto) Neutrophils % (Manual) Lymphocytes % (Manual) VBG pH 7.29 L VBG pCO2 51.7 H VBG O2 Saturation 71.5 H VBG Base Excess -2.5 L Sodium 134 L Chloride 97 L BUN 18 H Glucose 142 H Magnesium Alkaline Phosphatase 153 H Human Metapneumovir PCR Detected A 01/28/24 04:35 RBC 4.04 L MCV 99.6 H MCH 33.1 H MPV 7.3 L Neut % (Auto) 95.6 H Lymph % (Auto) 3.[address] [facility] % (Auto) 1.1 L Neut # (Auto) 8.8 H Lymph # (Auto) 0.3 L Neutrophils % (Manual) 98 H Lymphocytes % (Manual) 2 L VBG pH VBG pCO2 VBG O2 Saturation VBG Base Excess Sodium 135 L Chloride BUN Glucose 223 H D Magnesium 2.4 H Alkaline Phosphatase 146 H Human Metapneumovir PCR Assessment and Plan *Assessment and plan (1) Acute exacerbation of chronic obstructive pulmonary disease: Status: Acute Category: Medical Code(s): J44.1 - Chronic obstructive pulmonary disease with (acute) exacerbation (2) Respiratory failure with hypoxia and hypercapnia: Status: Acute Qualifiers: Chronicity: acute Qualified Code(s): J96.01 - Acute respiratory failure with hypoxia; J96.02 - Acute respiratory failure with hypercapnia Category: Medical Code(s): J96.91 - Respiratory failure, unspecified with hypoxia; J96.92 - Respiratory failure, unspecified with hypercapnia (3) Dyspnea on exertion: Status: Acute Category: Medical Code(s): R06.09 - Other forms of dyspnea (4) Pneumonia: Status: Acute Category: Medical Code(s): J18.9 - Pneumonia, unspecified organism Plan Ms. Floyd is a 84-year-old female current smoker greater than [id number] smoking history, not using any at baseline presented to the ER with worsening respiratory distress and pulmonary was called for further evaluation and management. Patient was gradually worsening respiratory saline with worsening cough and productive phlegm prior to admission CTA upon admission, extensive upper lobe predominant emphysematous changes. Bilateral lower lobe tree-in-bud/airspace disease noted. No dense consolidative changes noted. No evidence of pulmonary embolism noted. Patient currently being managed for COPD exacerbation, recent ablation therapies and doxycycline. Comprehensive respiratory viral PCR panel positive for human metapneumovirus. Afebrile. Hemodynamically stable. Initial examination, severe respiratory distress with bilateral diffuse wheezing. Plan: Continue oxygen supplementation to maintain O2 saturation goal of 90% above, currently on 2 L saturating 90 to 92% DuoNebs every 4 hours along with Pulmicort every 12 scheduled Methylprednisolone 60 mg IV daily Change doxycycline to levofloxacin 750 mg daily Follow with sputum Gram stain culture sensitivities # Thank you for involving pulmonary in this patient care. Will continue to follow.
[2024-01-29] MEDS: 0.9 % SODIUM CHLORIDE 50 ML VIAL IV (09:51)
[2024-01-29] MEDS: IOPAMIDOL-370 (76%);100ML BOTTLE 75 ML IV (09:51)
[2024-01-29] MEDS: SODIUM CHLORIDE 0.9% 10ML SYR (RAD ONLY) 10 ML IV (09:51)
[2024-01-29] MEDS: APIXABAN 5MG TABLET 5 MG PO ×2 (10:01→20:08)
[2024-01-29] MEDS: METOPROLOL SUCCINATE XL 50MG TABLET 50 MG PO (10:01)
[2024-01-29] MEDS: 0.9 % SODIUM CHLORIDE 1000ML 1,000 ML 50 ML IV (10:05)
--- NOTE | 2024-01-29 10:55 | P.CONCA_ITS ---
History of Present Illness History of Present Illness Consult date: 01/29/24 Requesting physician: Joanna Van Consult reason: shortness of breath Chief complaint: SOA History of present illness: This is an 84-year-old white female who presented to the emergency department complaints of shortness of breath. She has a past medical history of hyperlipidemia and is a current tobacco user. The patient was admitted to the hospital for an acute COPD exacerbation after having shortness of breath and cough for approximately 3 days. She states that this was worse with exertion and did improve with rest. She denies any chest pain or pressure. She denies any fever, chills, nausea, vomiting, diarrhea, PND or orthopnea. The patient did go into atrial fibrillation with RVR during the night last night. She was having paroxysms of atrial fibrillation and is in sinus rhythm this morning so cardiology was consulted. She denied any palpitations or racing of the heart. [facility] Disclaimer: The information contained in this section may have been updated after the patient was seen, as this information can be updated by other users. Medical History (Updated 01/29/24 @ 10:57 by Ella Perez APRN) Atrial fibrillation with RVR Hyperlipemia Cataract Surgical History Hx of cataract surgery Family History Other Family history of cancer Social History (Updated 01/28/24 @ 00:10 by Tesha Parham RN) Smoking Status: Current every day smoker tobacco type: cigarettes packs per day: 1 alcohol intake: never current occupational status: retired Travel in the last 8 weeks: None household members: spouse housing: house caffeine: No Review of Systems Review of Systems Review of systems:: pertinent systems reviewed and negative unless documented below Constitutional Constitutional: Reports system reviewed and no additional complaints, except as documented, Reports fatigue and Reports lethargy Eyes Eyes: Reports system reviewed and no additional complaints, except as documented ENT Ears, Nose, Mouth, and Throat: Reports system reviewed and no additional complaints, except as documented *Cardiovascular Cardiovascular: Reports system reviewed and no additional complaints, except as documented, Denies chest pain, Reports dyspnea and Reports dyspnea on exertion *Respiratory Respiratory: Reports system reviewed and no additional complaints, except as documented, Reports cough, Reports dyspnea, Reports dyspnea on exertion and Denies excessive phlegm production *Gastrointestinal Gastrointestinal: Reports system reviewed and no additional complaints, except as documented *Genitourinary Genitourinary: Reports system reviewed and no additional complaints, except as documented *Musculoskeletal Musculoskeletal: Reports system reviewed and no additional complaints, except as documented Integumentary/Breasts Skin/Breast: Reports system reviewed and no additional complaints, except as documented *Neurologic Neurologic: Reports system reviewed and no additional complaints, except as documented Psychiatric Psychiatric: Reports system reviewed and no additional complaints, except as documented Endocrine Endocrine: Reports system reviewed and no additional complaints, except as documented and Reports fatigue Hematologic/Lymphatic Hematologic/Lymphatic: Reports system reviewed and no additional complaints, except as documented Allergic/Immunologic Allergic/Immunologic: Reports system reviewed and no additional complaints, except as documented Exam Data for Last 24 hours Vital signs and Labs for Last 24 Hours: Temp Pulse Resp BP Pulse Ox O2 Del Method O2 Flow Rate 98.7 F 100 H 17 139/74 97 Nasal Cannula 2.5 01/29/24 07:31 01/29/24 08:00 01/29/24 07:31 01/29/24 07:31 01/29/24 07:31 01/29/24 08:00 01/29/24 08:00 I & O for Last 24 hours: Intake & Output 01/26/24 01/27/24 01/28/24 01/29/24 23:59 23:59 23:59 23:59 Intake Total 1247 / 1247 0 / 0 Output Total 0 / 0 0 / 0 Balance 1247 / 1247 0 / 0 Weight 175 lb 162 lb 4.798 oz 163 lb 12.8 oz Microbiology Reports for the Last 24 Hours: Microbiology 01/27/24 22:29 Blood Blood Culture - Preliminary 01/27/24 22:29 Blood Blood Culture - Preliminary NO GROWTH AFTER 24 HOURS Narrative: EKG #1 shows sinus rhythm with a rate of 92 bpm EKG #2 shows atrial fibrillation with a rate of [address]/T wave abnormalities. Constitutional Constitutional: no acute distress and average body habitus *Routine HEENT Exam Head: Present normocephalic and atraumatic ENT: Present mucous membranes moist *Routine Neck Exam Neck: Present supple, full ROM and normal carotid upstroke; Absent JVD, carotid bruit or lymphadenopathy *Routine Respiratory Exam Respiratory: Present decreased breath sounds, wheezes and symmetric chest movement *Routine Cardiovascular Exam Cardiovascular: Present RRR, Normal S1 and Normal S2; Absent murmur or gallop *Routine Abdominal Exam Abdominal: Present soft and normoactive bowel sounds; Absent tenderness, distended or organomegaly *Routine Extremities Exam Extremities: Present full ROM, pulses intact and normal capillary refill; Absent cyanosis, clubbing or edema *Routine Skin Exam Skin: Present intact and warm; Absent erythema *Routine Neurological Exam Neurological: Present alert, oriented X3 and CN II-XII intact; Absent sensory deficit or motor deficit Routine Psychiatric Exam Psychiatric: Present normal affect Meds Home Medications and Allergies Home Medications Medication Instructions Recorded Confirmed Type pravastatin 20 mg tablet 20 mg PO DAILY 09/06/19 01/28/24 History New Prescriptions to Start Prescriptions: Allergies Allergy/AdvReac Type Severity Reaction Status Date / Time No Known Allergies Allergy Verified 01/27/24 22:26 Assessment and Plan *Assessment and plan (1) Atrial fibrillation with RVR: Status: Acute Category: Medical Code(s): I48.91 - Unspecified atrial fibrillation (2) Current smoker: Status: Acute Category: Social Hx Code(s): F17.200 - Nicotine dependence, unspecified, uncomplicated (3) Hyperlipemia: Status: Acute Qualifiers: Hyperlipidemia type: unspecified Qualified Code(s): E78.5 - Hyperlipidemia, unspecified Category: Medical Code(s): E78.5 - Hyperlipidemia, unspecified (4) Respiratory failure with hypoxia and hypercapnia: Status: Acute Qualifiers: Chronicity: acute Qualified Code(s): J96.01 - Acute respiratory failure with hypoxia; J96.02 - Acute respiratory failure with hypercapnia Category: Medical Code(s): J96.91 - Respiratory failure, unspecified with hypoxia; J96.92 - Respiratory failure, unspecified with hypercapnia (5) Acute exacerbation of chronic obstructive pulmonary disease: Status: Acute Category: Medical Code(s): J44.1 - Chronic obstructive pulmonary disease with (acute) exacerbation Plan Plan: 1. The patient was admitted to the hospital with an acute exacerbation of COPD. Will defer this to the hospitalist and pulmonology. 2. The patient did have paroxysms of atrial fibrillation with RVR through the night. She is currently in sinus rhythm. Will start her on Toprol 50 mg p.o. daily for suppression of the atrial fibrillation. 3. The patient does have a [id number] score at least 3. She will need to be on long-term anticoagulation. Will start the patient on Eliquis 5 mg p.o. twice daily. 4. Will obtain an echocardiogram to evaluate her LV function due to her shortness of breath and atrial fibrillation. 5. Will also obtain a CTA of her chest to rule out PE due to her atrial fibrillation and profound shortness of breath. 6. She denies any chest pain or pressure. She ruled out for an ID. No plans for invasive left cardiac catheterization at this time. Once she is discharged from the hospital she would benefit from an ischemic evaluation on an outpatient basis. 7. Her BNP is negative. 8. No further recommendations at this time from a cardiac standpoint. Once the patient is optimized from a medical and pulmonology standpoint and she is ready for discharge home she will need to be discharged on the following cardiac medications: Eliquis 5 mg p.o. twice daily, Toprol XL 50 mg daily, pravastatin 20 mg daily.
[2024-01-29] MEDS: SODIUM CHLORIDE 3% 15ML NEB 3 ML IH (11:37)
[2024-01-29] MEDS: METHYLPREDNISOLONE SOD SUCC 125MG VIAL 60 MG IV (12:14)
[2024-01-29] MEDS: LEVOFLOXACIN/D5W 750 MG/150 ML 750 MG/150 ML PIGGYBACK 100 MG IV (12:14)
--- NOTE | 2024-01-29 13:41 | SW/DCPLANNER ---
Addendum entered by Gloria Crawford 02/01/24 15:33: [facility] stated that services will start this week. Addendum entered by Gloria Crawford 02/01/24 12:39: Patient information/order has been faxed to [facility]/ [facility]. Patient will discharge home this afternoon. Original Note: I spoke w/ patient and her son regarding plans once medically stable for discharge. PT/OT evaluated patient and stated that patient could return home w/ home health and family assistance vs placement. Patient stated that she prefer to return home w/ home health services. Patient's son stated that someone is w/ patient 23/02. I will set up home health services at time of discharge.
--- NOTE | 2024-01-29 13:48 | HMH.PTEV ---
Physical Therapy Evaluation Rehab PT IP Evaluation Start: 01/29/24 10:49 Freq: ONCE Status: Active Protocol: Document 01/29/24 13:37 KARINA (Rec: 01/29/24 13:47 KARINA [email or web address]) Subjective/History History History Per H&P: This is a 84-year-old female largely with apparently no previous medical history only that long standing heavy smoaker , with more than a pack per day per more than 30 years, ahe also takes cholesterol medicine at home, who presented emergency department for evaluation of shortness of breath and cough. History obtained by interviewing patient, Daughter who is also a POA at bedside contribute with history patient is T[place]. Onset was acute over the last week, with progressively intensification of cough and SOB in the last 3 days. No chest pain. no fever. Has never been diagnosed with COPD and does not take any controller inhalers. No other acute complaints at this time. Admitted for continuous inpatient management. Subjective Subjective PLOF per pt report: Lives alone in a single-story home with 4 RITU (HRs). Pt's grand- daughter stays with her during the night and pt stays with family during the day. Pt reports she was primarily IND with functional mobility without AD use. Pt's family member reports someone can be with her to assist if needed. Pt's mobility limited by c/o MARTINEZ and SOA. Pt required VCs for proper breathing in order to improve O2 sats. Pts O2 sats dropped to low 70s after mobility assessement and nursing was notified. Nursing assessed pt in room and turned supplemental O2 up to 4L. Pt left resting in bed with O2 at 89% SpO2 and bed alarm armed. New diagnosis of cancer in past 12 No months? Rehab PT IP Eval Objective Appearance Patient Behavior Appropriate,Cooperative Patient Orientation Person,Age,Situation Speech Pattern Clear Ambulation Patient Able to Ambulate No Balance Ability to Arise Able, uses arms to help Sitting Balance Steady, safe Standing Balance Unsteady Transfers Bed Transfer Ability Supervision/Stand by Sit to Stand Bed Transfer Ability Contact Guard/Hand Hold Rehab PT IP prob,goals,plan Problems Date of Evaluation: 01/29/24 PT IP Problems Bed Mobility,Transfers,Gait, Balance,Safety Rehab Potential Rehab Potential Good Equipment Needs Assistive Devices Rolling / Wheeled Walker Plan PT Intervention Plan Bed Mobility,Transfers,Gait, Balance,Safety,Therapeutic Exercise Other Intervention Plan 1-2 times PT Plan Frequency Daily Duration LOS Discharge Goals Bed Transfer Ability Independent Sit to Stand Chair Transfer Ability Independent Ambulation Assistive Device Rolling Walker Ambulation Distance (feet) 10 Discharge Plan PT Discharge Plan Initial physical therapy evaluation performed. Patient presents below baseline at this time in functional mobility, transfers, gait, and strength. Pt would benefit from skilled PT while at [facility] to prevent further functional decline and maximize safety with mobility. Pt safe to d/c home when deemed medically necessary d/t current level of mobility, home set-up, and reported family support. Pt not safe to return home alone without / assistance. Per pt's family, pt has available assistance as needed. PT recommending home health PT services to address deficits. Eval Complexity Eval Charge Codes 85208 - Moderate Complexity PHYSICIAN CERTIFICATION: I certify the specified therapy services for Lizeth Floyd are required, authorized, and reviewed every 30 days.
--- NOTE | 2024-01-29 13:53 | HMH.OTEV ---
OT Inpatient Evaluation Rehab OT IP Evaluation Start: 01/29/24 10:49 Freq: ONCE Status: Active Protocol: Document 01/29/24 13:33 PRISCILLA (Rec: 01/29/24 13:52 [facility] [place] [id number]) Rehab OT IP Assessment Subjective History This is a 84-year-old female largely with apparently no previous medical history only that long standing heavy smoker , with more than a pack per day per more than 30 years, also takes cholesterol medicine at home, who presented emergency department for evaluation of shortness of breath and cough. History obtained by interviewing patient, Daughter who is also a POA at bedside contribute with history patient is WAINWRIGHT. Onset was acute over the last week, with progressively intensification of cough and SOB in the last 3 days. No chest pain. no fever. Has never been diagnosed with COPD and does not take any controller inhalers. No other acute complaints at this time . Admitted for continuous inpatient management on . PLOF: Pt reports they live in single story home alone with family nearby. Pt reports they have 3 steps to get into home with hand rails on both sides. pt reports they are not on O2 at home and they do not use a walker. Pt reports they need assist for IADLs. Pt reports family helps with IADLs. Pt reports granddaughter stays with them at night and pt goes to daughters house during day . Subjective My head is hurting. Pt was supine in bed when therapy entered room. Pt's family was also present when therapy entered. Pt agreed to participate in initial OT eval this morning. Pt was oriented x3. Pt agreed to sit on EOB. Pt went from supine to EOB CGA . Pt was able to hold static sitting balance for ~2 minutes while therapy asked questions . Pt agreed to complete a STS transfer. Pt completed a STS transfer with Min Assist x2 and held static sitting balance for ~2 minutes while therapy adjusted sheets. At this time, pt demonstrated with SOA with O2 dropping to 72. Therapy had pt sit back on EOB. Pt reported they wanted to lie back down. Pt went from EOB to supine with CGA. Therapy stayed with pt to address low O2 levels. Therapy then got nursing which came into room to address low O2 levels. Nursing bumped pt's O2 to 4 L. Pt's O2 levels gerald back to 90. Pt required max verbal and visual cues to take deep breaths with proper techniques. Pt was left supine in bed with call light and all other needs within reach. Family was also notified about pt's performance. Objective Patient Orientation Person,Birthday,Patient Baseline Bed Mobility bed mobility-scooting,bed mobility - supine/sit Assist Level Contact Guard/Hand Hold Transfer Training Sit/Stand Transfer Assist Level Minimal x 2 (25% assist) Decrease in Endurance Yes Rehab OT IP prob,goals,plan Problems Date of Evaluation: 01/29/24 OT IP Problems Bed Mobility,Transfers,Balance ,Self care,Safety Rehab Potential Rehab Potential Good Equipment Needs Assistive Devices Standard Walker Plan OT intervention Plan Bed Mobility,Transfers,Balance ,Self care,Safety,Therapeutic Exercise OT Plan Frequency Daily Duration LOS Discharge Goals Bed Mobility Ability Standby Assistance Sit to Stand Chair Transfer Ability Contact Guard/Hand Hold Chair Transfer Ability Supervision/Stand by Chair Transfer Technique Sit to/from Ambulatory Chair Transfer Assistive Devices Rolling Walker Lower Body Dressing Ability Contact Guard Upper Body Dressing Ability Standby Assistance Bathing Ability Minimal Assistance Performing Toilet Hygiene Ability Minimal Assistance Overall Commode/Toilet Transfer Ability Contact Guard Commode/Toilet Transfer Technique Sit to/from Ambulatory Commode/Toilet Transfer Assistive Grab Bars Devices Decrease in Endurance No Discharge Plan OT Discharge Plan At this time, it is recommended that pt can go home with services to address occupational performance deficits with skilled OT services if pt has 24/7 care at home. If no 24/7 care, pt would also benefit from ST rehab to address occupational performance deficits with skilled OT services. All pending orders and medical status. Pt will continue to be seen while at this facility to address occupational performance deficits with skilled OT interventions and services. Eval Complexity Eval Charge Codes 49301 - Moderate Complexity PHYSICIAN CERTIFICATION: I certify the specified therapy services for Lizeth Floyd are required, authorized, and reviewed every 30 days.
--- NOTE | 2024-01-29 15:59 | PC.NURSE ---
Pt is currently resting in bed. Has been soa this shift. Has required O2 NC between 2 - 4L this shift. Pt becomes very exerted with ambulation. O2 desats as low as 59%. O2 has been titrated according to exertion. Pt is currently NSR on telemetry with PVCs noted. Medication administered per oct. Call light within reach. Safety measures in place.
--- NOTE | 2024-01-29 17:36 | EXP.PN ---
Subjective *Date: 01/29/24 *Time: 17:36 Interval history: alert awake, hold conversations but appears fragile and weak, no acute events overnight Exam Data for Last 24 hours Vital signs and Labs for Last 24 Hours: Temp Pulse Resp BP Pulse Ox O2 Del Method O2 Flow Rate 97.3 F L 84 17 135/81 95 Nasal Cannula 2.5 01/29/24 16:00 01/29/24 16:00 01/29/24 16:00 01/29/24 16:00 01/29/24 16:00 01/29/24 16:00 01/29/24 16:00 I & O for Last 24 hours: Intake & Output 01/26/24 01/27/24 01/28/24 01/29/24 23:59 23:59 23:59 23:59 Intake Total 1247 / 1247 60 / 60 Output Total 0 / 0 0 / 0 Balance 1247 / 1247 60 / 60 Weight 79.379 kg 73.618 kg 74.29 kg Microbiology Reports for the Last 24 Hours: Microbiology 01/27/24 22:29 Blood Blood Culture - Preliminary 01/27/24 22:29 Blood Blood Culture - Preliminary NO GROWTH AFTER 24 HOURS Constitutional Constitutional: no acute distress *Routine HEENT Exam Head: Present normocephalic Eye: Present EOMI and PERRL ENT: Present mucous membranes moist *Routine Neck Exam Neck: Present supple; Absent lymphadenopathy *Routine Respiratory Exam Respiratory: Present wheezes and diminished air movement *Routine Cardiovascular Exam Cardiovascular: Present RRR *Routine Abdominal Exam Abdominal: Present soft and normoactive bowel sounds; Absent tenderness *Routine Extremities Exam Extremities: Absent cyanosis, clubbing or edema *Routine Skin Exam Skin: Present warm; Absent rash *Routine Neurological Exam Neurological: Present alert and oriented X3 Assessment and Plan *Assessment and plan (1) Respiratory failure with hypoxia and hypercapnia: Status: Acute Qualifiers: Chronicity: acute Qualified Code(s): J96.01 - Acute respiratory failure with hypoxia; J96.02 - Acute respiratory failure with hypercapnia Category: Medical Code(s): J96.91 - Respiratory failure, unspecified with hypoxia; J96.92 - Respiratory failure, unspecified with hypercapnia (2) Acute exacerbation of chronic obstructive pulmonary disease: Status: Acute Category: Medical Code(s): J44.1 - Chronic obstructive pulmonary disease with (acute) exacerbation (3) Upper respiratory infection, viral: Status: Acute Category: Medical Code(s): J06.9 - Acute upper respiratory infection, unspecified (4) Hyperlipemia: Status: Acute Qualifiers: Hyperlipidemia type: unspecified Qualified Code(s): E78.5 - Hyperlipidemia, unspecified Category: Medical Code(s): E78.5 - Hyperlipidemia, unspecified (5) Current smoker: Status: Acute Category: Social Hx Code(s): F17.200 - Nicotine dependence, unspecified, uncomplicated Plan 84-year-old female largely with apparently no previous medical history only that long standing heavy smoker , with more than a pack per day per more than 30 years, she also takes cholesterol medicine at home, who presented emergency department for evaluation of shortness of breath and cough Acute hypoxia and hypercapnia respiratory failure Suspected exacerbation of COPD. Patient has not previous diagnosis of asthma or COPD. upper respiratory viral infection with cough and congestion Currently on 3 L Pulmonology consult DuoNeb every q4hr solumedrol levofloxacin Sputum culture pending. Blood culture pending Full respiratory panel positive for human metapneumovirus new onset Afib RVR Eliquis 5 mg p.o. twice daily, Toprol XL 50 mg daily, pravastatin 20 mg daily. cardiology consulted monitor on telemetry -History of hyperlipidemia: Resume home pravastatin Currently heavy smoker On nicotine patch daily Lovenox for DVT prophylaxis. On Protonix Full code Regular cardiac diet
[2024-01-29] MEDS: BUDESONIDE 0.5MG/2ML NEB 0.5 MG IH (18:40)
[2024-01-29] MEDS: PRAVASTATIN 20MG TAB 20 MG PO (20:08)
[2024-01-30] VITALS (16 sets, daily range): BP systolic 124–156; BP diastolic 59–94; PULSE 44–114; RESP 16–18; TEMP 36.4–36.9; O2SAT 3–98; BMI 29.2
[2024-01-30] MEDS: IPRATROPIUM/ALBUTEROL 3 ML NEB IH ×6 (02:07→21:26)
--- NOTE | 2024-01-30 04:53 | PC.NURSE ---
Pt is alert and oriented. Increased O2 to 3L, pt maintaining O2 sat >90%. Lung sounds wheezing noted. Ambulates to the restroom with assistance. Daughter remains at the bedside. Pt has rested throughout the night with no complaints. Tele shows sinus arrhythmia. Bed alarm on. Call light in reach.
[2024-01-30] MEDS: BUDESONIDE 0.5MG/2ML NEB 0.5 MG IH ×2 (06:20→18:20)
[2024-01-30 06:48] LABS: Basophils % 0.2 % (0.1-2.0); Eosinophils # 0.1 K/mm3 (0.0-0.4); Eosinophils % 0.6 % (0.1-12.0); Hematocrit 36.3 % (37.0-47.0); Hemoglobin 12.5 g/dL (12.2-16.2); Lymphocytes # 0.8 K/mm3 (0.7-4.5); Lymphocytes % 8.2 % (10-50); Mean Corpuscular HGB Conc 34.3 g/dL (31.8-35.4); Mean Corpuscular Hemoglobin 34.9 pg (27.0-31.2); Mean Corpuscular Volume 101.6 fl (81-99); Mean Platelet Volume 8.2 fl (7.4-10.4); Monocytes # 0.4 K/mm3 (0.1-1.0); Monocytes % 4.2 % (1.7-9.3); Neutrophils # 8.7 K/mm3 (1.8-7.8); Neutrophils % 86.7 % (37.0-80.0); Platelet Count 178 K/mm3 (142-424); Red Blood Count 3.58 M/mm3 (4.20-5.40); Red Cell Distribution Width 13.9 % (11.5-17.5); White Blood Count 10.1 K/mm3 (4.8-10.8)
[2024-01-30 07:01] LABS: Chloride 97 mmol/L (98-107); Sodium 136 mmol/L (136-145)
[2024-01-30 07:02] LABS: Potassium 4.4 mmoL/L (3.5-5.1)
[2024-01-30 07:04] LABS: Blood Urea Nitrogen 22 mg/dl (7-17); Creatinine Clearance Estimated 51 mL/min (50-200); Estimated Glomerular Filt Rate 80 ml/min (>60); GFR (African American) 97 ML/MIN (>60)
[2024-01-30 07:05] LABS: Anion Gap 9.4 mEq/L (5-15); Calcium 9.1 mg/dl (8.4-10.2); Carbon Dioxide 34 mmol/L (22.0-30.0); Glucose 130 mg/dl (74-100)
[2024-01-30 07:08] LABS: MANUAL DIFFERENTIAL MANUAL DIFFERENTIAL (MANUAL DIFF)
[2024-01-30 08:13] LABS: Lymphocytes % 11 % (10-50); Macrocytosis 1+; Monocytes % 5 % (2-9); Neutrophils % 84 % (42-76); Platelet Estimate Normal; Total Cells Counted 100
[2024-01-30] MEDS: APIXABAN 5MG TABLET 5 MG PO ×2 (08:33→20:41)
[2024-01-30] MEDS: PANTOPRAZOLE 40MG TABLET 40 MG PO (08:34)
[2024-01-30] MEDS: METHYLPREDNISOLONE SOD SUCC 125MG VIAL 60 MG IV (08:34)
[2024-01-30] MEDS: METOPROLOL SUCCINATE XL 50MG TABLET 50 MG PO (08:34)
[2024-01-30] MEDS: LEVOFLOXACIN/D5W 750 MG/150 ML 750 MG/150 ML PIGGYBACK 100 MG IV (12:31)
--- NOTE | 2024-01-30 14:51 | EXP.PN ---
Subjective *Date: 01/30/24 *Time: 14:51 Interval history: alert awake, appears, comfortable in bed, hold conversations but appears fragile and weak, no acute events overnight Exam Data for Last 24 hours Vital signs and Labs for Last 24 Hours: Temp Pulse Resp BP Pulse Ox O2 Del Method O2 Flow Rate 97.6 F 70 18 147/94 H 94 L Nasal Cannula 4 01/30/24 11:53 01/30/24 14:10 01/30/24 11:53 01/30/24 11:53 01/30/24 14:10 01/30/24 14:10 01/30/24 14:10 Laboratory Results - last 24 hr 01/30/24 06:36: WBC 10.1, RBC 3.58 L, Hgb 12.5, Hct 36.3 L, MCV 101.6 H, MCH 34.9 H, MCHC 34.3, RDW 13.9, Plt Count 178, MPV 8.2, Neut % (Auto) 86.7 H, Lymph % (Auto) 8.2 L, [place] % (Auto) 4.2, Eos % (Auto) 0.6, Baso % (Auto) 0.2, Neut # (Auto) 8.7 H, Lymph # (Auto) 0.8, [place] # (Auto) 0.4, Eos # (Auto) 0.1, Baso # (Auto) 0.0, Total Counted 100, Neutrophils % (Manual) 84 H, Lymphocytes % (Manual) 11, Monocytes % (Manual) 5, Platelet Estimate Normal, Macrocytosis 1+, Sodium 136, Potassium 4.4, Chloride 97 L, Carbon Dioxide 34 H, Anion Gap 9.4, BUN 22 H D, Creatinine 0.70, Estimated Creat Clear 51, Estimated GFR 80, Est GFR ( Amer) 97, Glucose 130 H, Calcium 9.1 I & O for Last 24 hours: Intake & Output 01/27/24 01/28/24 01/29/24 01/30/24 23:59 23:59 23:59 23:59 Intake Total 1247 / 1247 730 / 850 1080 / 1080 Output Total 0 / 0 0 / 0 0 / 0 Balance 1247 / 1247 730 / 850 1080 / 1080 Weight 79.379 kg 73.618 kg 74.29 kg 75.024 kg Microbiology Reports for the Last 24 Hours: Microbiology 01/27/24 22:29 Blood Blood Culture - Preliminary Gram Positive Cocci 01/27/24 22:29 Blood Blood Culture - Preliminary NO GROWTH AFTER 48 HOURS Constitutional Constitutional: no acute distress *Routine HEENT Exam Head: Present normocephalic Eye: Present EOMI and PERRL ENT: Present mucous membranes moist *Routine Neck Exam Neck: Present supple; Absent lymphadenopathy *Routine Respiratory Exam Respiratory: Present wheezes and diminished air movement *Routine Cardiovascular Exam Cardiovascular: Present RRR *Routine Abdominal Exam Abdominal: Present soft and normoactive bowel sounds; Absent tenderness *Routine Extremities Exam Extremities: Absent cyanosis, clubbing or edema *Routine Skin Exam Skin: Present warm; Absent rash *Routine Neurological Exam Neurological: Present alert and oriented X3 Assessment and Plan *Assessment and plan (1) Respiratory failure with hypoxia and hypercapnia: Status: Acute Qualifiers: Chronicity: acute Qualified Code(s): J96.01 - Acute respiratory failure with hypoxia; J96.02 - Acute respiratory failure with hypercapnia Category: Medical Code(s): J96.91 - Respiratory failure, unspecified with hypoxia; J96.92 - Respiratory failure, unspecified with hypercapnia (2) Acute exacerbation of chronic obstructive pulmonary disease: Status: Acute Category: Medical Code(s): J44.1 - Chronic obstructive pulmonary disease with (acute) exacerbation (3) Upper respiratory infection, viral: Status: Acute Category: Medical Code(s): J06.9 - Acute upper respiratory infection, unspecified (4) Hyperlipemia: Status: Acute Qualifiers: Hyperlipidemia type: unspecified Qualified Code(s): E78.5 - Hyperlipidemia, unspecified Category: Medical Code(s): E78.5 - Hyperlipidemia, unspecified (5) Current smoker: Status: Acute Category: Social Hx Code(s): F17.200 - Nicotine dependence, unspecified, uncomplicated Plan 84-year-old female largely with apparently no previous medical history only that long standing heavy smoker , with more than a pack per day per more than 30 years, she also takes cholesterol medicine at home, who presented emergency department for evaluation of shortness of breath and cough Acute hypoxia and hypercapnia respiratory failure Suspected exacerbation of COPD upper respiratory viral infection with cough and congestion Currently on 3 L Pulmonology consult DuoNeb every q4hr solumedrol levofloxacin Sputum culture pending Blood culture pending Full respiratory panel positive for human metapneumovirus new onset Afib RVR Eliquis 5 mg p.o. twice daily, Toprol XL 50 mg daily, pravastatin 20 mg daily. cardiology consulted monitor on telemetry History of hyperlipidemia Resume home pravastatin Currently heavy smoker On nicotine patch daily Lovenox for DVT prophylaxis. On Protonix Full code Regular cardiac diet continue breathing treatments, steroids and Levofloxacin
--- NOTE | 2024-01-30 16:29 | PC.NURSE ---
Pt remains on 3L NC. Attempted to titrate down but unsuccessful. Pt becomes exerted during ambulation and has required O2 titration up to 4-5 L to recover. Pt states she doesn't feel good. She has been educated and encouraged to get up to the chair. Bath given to patient. MD notified of family wanting to discuss pt's COPD diagnosis in AM. Call light within reach. Safety measures in place.
[2024-01-30] MEDS: PRAVASTATIN 20MG TAB 20 MG PO (20:41)
[2024-01-30] MEDS: clonazePAM 1MG TABLET 1 MG PO (20:41)
--- NOTE | 2024-01-30 22:59 | PC.NURSE ---
Pt presents with confusion that comes and goes she states that she must be dreaming and ask where family members are, pt is able to tell staff her name and age but unable to tell staff where she is. Pt is anxious and BP elevated (155/91). Bed alarm active and bed lower.
[2024-01-31] VITALS (15 sets, daily range): BP systolic 134–154; BP diastolic 67–92; PULSE 70–115; RESP 16–20; TEMP 35.9–36.9; O2SAT 91–95; BMI 29.2
[2024-01-31] MEDS: IPRATROPIUM/ALBUTEROL 3 ML NEB IH ×6 (02:15→21:38)
--- NOTE | 2024-01-31 05:15 | PC.NURSE ---
Pt is alert and oriented x4 for the most part despite and episode of confusion pt was able to reorient and has since then rested well. Pt continues to ambulate to BR with x2 assist. Family member x1 at bedside. Pt lungs remain diminshed throughout and pt remains on 2L of O2 and sating in mid 90s.
[2024-01-31] MEDS: BUDESONIDE 0.5MG/2ML NEB 0.5 MG IH ×2 (06:16→17:55)
[2024-01-31] MEDS: APIXABAN 5MG TABLET 5 MG PO ×2 (08:21→20:56)
[2024-01-31] MEDS: PANTOPRAZOLE 40MG TABLET 40 MG PO (08:21)
[2024-01-31] MEDS: METHYLPREDNISOLONE SOD SUCC 125MG VIAL 60 MG IV (08:21)
[2024-01-31] MEDS: METOPROLOL SUCCINATE XL 50MG TABLET 50 MG PO (08:21)
[2024-01-31 08:23] LABS: Basophils % 0.2 % (0.1-2.0); Eosinophils % 0.1 % (0.1-12.0); Hematocrit 40.9 % (37.0-47.0); Hemoglobin 13.9 g/dL (12.2-16.2); Lymphocytes # 0.8 K/mm3 (0.7-4.5); Lymphocytes % 10.3 % (10-50); Mean Corpuscular HGB Conc 33.9 g/dL (31.8-35.4); Mean Corpuscular Hemoglobin 33.4 pg (27.0-31.2); Mean Corpuscular Volume 98.4 fl (81-99); Mean Platelet Volume 8.5 fl (7.4-10.4); Monocytes # 0.5 K/mm3 (0.1-1.0); Neutrophils # 6.6 K/mm3 (1.8-7.8); Neutrophils % 83.3 % (37.0-80.0); Platelet Count 187 K/mm3 (142-424); Red Blood Count 4.15 M/mm3 (4.20-5.40); Red Cell Distribution Width 13.4 % (11.5-17.5)
[2024-01-31 08:29] LABS: Chloride 94 mmol/L (98-107); Potassium 3.9 mmoL/L (3.5-5.1); Sodium 134 mmol/L (136-145)
[2024-01-31 08:32] LABS: Anion Gap 9.9 mEq/L (5-15); Blood Urea Nitrogen 26 mg/dl (7-17); Carbon Dioxide 34 mmol/L (22.0-30.0); Creatinine Clearance Estimated 51 mL/min (50-200); Estimated Glomerular Filt Rate 80 ml/min (>60); GFR (African American) 97 ML/MIN (>60); Glucose 116 mg/dl (74-100)
[2024-01-31] MEDS: LEVOFLOXACIN/D5W 750 MG/150 ML 750 MG/150 ML PIGGYBACK 100 MG IV (10:30)
[2024-01-31] MEDS: POLYETHYLENE GLYCOL 3350 17 GM PACKET PO (12:06)
--- NOTE | 2024-01-31 15:18 | ECG_ITS ---
APPROVED REPORT Exam: Resting ECG HR:120 bpm ECG Measurements Heart Rate 120 AXES QRSd 80 QRS 33 QT 305 T 38 QTc 376 Conclusion ATRIAL FIBRILLATION WITH RAPID VENTRICULAR RESPONSE WITH ABERRANT CONDUCTION OR VENTRICULAR PREMATURE COMPLEXES LOW QRS VOLTAGE IN EXTREMITY LEADS [QRS DEFLECTION < 0.5 mV IN LIMB LEADS] ABNORMAL RHYTHM ECG UNCONFIRMED REPORT Electronically signed by : SOPHIA HARPER, 02/02/2024 02:16:44
[2024-01-31] MEDS: METOPROLOL TARTRATE 5MG/5ML VIAL 5 MG IV (15:24)
--- NOTE | 2024-01-31 15:35 | PC.NURSE ---
Change in Pt's HR noted on telemetry. EKG was ordered and obtained @ 1518. Noted to be Afib w/ RVR. aware. Pt was administered Metoprolol 5 mg IV.
--- NOTE | 2024-01-31 16:45 | ECG_ITS ---
APPROVED REPORT Exam: Resting ECG HR:78 bpm ECG Measurements Heart Rate 78 AXES SC 139 P 80 QRSd 78 QRS 44 QT 374 T 62 QTc 407 Conclusion SINUS RHYTHM WITH OCCASIONAL SUPRAVENTRICULAR PREMATURE COMPLEXES LOW QRS VOLTAGE IN EXTREMITY LEADS [QRS DEFLECTION < 0.5 mV IN LIMB LEADS] BORDERLINE ECG UNCONFIRMED REPORT Electronically signed by : SOPHIA HARPER, 02/02/2024 02:16:27
--- NOTE | 2024-01-31 19:02 | PC.NURSE ---
Pt's HR continued to remain in Afib after IV Metoprolol 5 MG but did decrease. MD was notified and new orders placed to put pt on amiodarone gtt. Pt ambulated to BR and HR was noted to be NSR on telemetry. EKG was obtained and confirmed pt had converted. MD notified. New orders received to not place pt in step down or start amiodarone drip. no new orders at this time.
[2024-01-31] MEDS: PRAVASTATIN 20MG TAB 20 MG PO (20:56)
[2024-01-31] MEDS: MELATONIN 5MG TABLET 5 MG PO (20:56)
--- NOTE | 2024-01-31 22:24 | P.PN_ITS ---
Subjective *Date: 01/31/24 *Time: 14:00 Interval history: seen at bedside, daughter at bedside, patient sitting in chair, alert awake and holding conversation in full sentences, on 2L NC Exam Data for Last 24 hours Vital signs and Labs for Last 24 Hours: Temp Pulse Resp BP Pulse Ox O2 Del Method O2 Flow Rate 96.7 F L 77 18 144/74 H 94 L Nasal Cannula 2 01/31/24 20:00 01/31/24 21:52 01/31/24 20:00 01/31/24 20:00 01/31/24 20:00 01/31/24 20:00 01/31/24 20:00 FiO2 32 01/31/24 18:31 Laboratory Results - last 24 hr 01/31/24 07:05: WBC 8.0, RBC 4.15 L, Hgb 13.9, Hct 40.9, MCV 98.4, MCH 33.4 H, MCHC 33.9, RDW 13.4, Plt Count 187, MPV 8.5, Neut % (Auto) 83.3 H, Lymph % (Auto) 10.3, [place] % (Auto) 6.0, Eos % (Auto) 0.1, Baso % (Auto) 0.2, Neut # (Auto) 6.6, Lymph # (Auto) 0.8, [place] # (Auto) 0.5, Eos # (Auto) 0.0, Baso # (Auto) 0.0, Sodium 134 L, Potassium 3.9, Chloride 94 L, Carbon Dioxide 34 H, Anion Gap 9.9, BUN 26 H, Creatinine 0.70, Estimated Creat Clear 51, Estimated GFR 80, Est GFR ( Amer) 97, Glucose 116 H, Calcium 9.0 I & O for Last 24 hours: Intake & Output 01/28/24 01/29/24 01/30/24 01/31/24 23:59 23:59 23:59 23:59 Intake Total 1247 / 1247 730 / 850 1590 / 1710 840 / 840 Output Total 0 / 0 0 / 0 0 / 0 0 / 0 Balance 1247 / 1247 730 / 850 1590 / 1710 840 / 840 Weight 73.618 kg 74.29 kg 75.024 kg 75.024 kg Constitutional Constitutional: no acute distress *Routine HEENT Exam Head: Present normocephalic Eye: Present EOMI and PERRL ENT: Present mucous membranes moist *Routine Neck Exam Neck: Present supple; Absent lymphadenopathy *Routine Respiratory Exam Respiratory: Present wheezes *Routine Cardiovascular Exam Cardiovascular: Present RRR *Routine Abdominal Exam Abdominal: Present soft and normoactive bowel sounds; Absent tenderness *Routine Extremities Exam Extremities: Absent cyanosis, clubbing or edema *Routine Skin Exam Skin: Present warm; Absent rash *Routine Neurological Exam Neurological: Present alert and oriented X3 Assessment and Plan *Assessment and plan (1) Respiratory failure with hypoxia and hypercapnia: Status: Acute Qualifiers: Chronicity: acute Qualified Code(s): J96.01 - Acute respiratory failure with hypoxia; J96.02 - Acute respiratory failure with hypercapnia Category: Medical Code(s): J96.91 - Respiratory failure, unspecified with hypoxia; J96.92 - Respiratory failure, unspecified with hypercapnia (2) Acute exacerbation of chronic obstructive pulmonary disease: Status: Acute Category: Medical Code(s): J44.1 - Chronic obstructive pulmonary disease with (acute) exacerbation (3) Upper respiratory infection, viral: Status: Acute Category: Medical Code(s): J06.9 - Acute upper respiratory infection, unspecified (4) Hyperlipemia: Status: Acute Qualifiers: Hyperlipidemia type: unspecified Qualified Code(s): E78.5 - Hyperlipidemia, unspecified Category: Medical Code(s): E78.5 - Hyperlipidemia, unspecified (5) Current smoker: Status: Acute Category: Social Hx Code(s): F17.200 - Nicotine dependence, unspecified, uncomplicated Plan 84-year-old female largely with apparently no previous medical history only that long standing heavy smoker , with more than a pack per day per more than 30 years, she also takes cholesterol medicine at home, who presented emergency department for evaluation of shortness of breath and cough Acute hypoxia and hypercapnia respiratory failure Suspected exacerbation of COPD upper respiratory viral infection with cough and congestion weaned down to 2L NC today Pulmonology consulted reviwed recommendations DuoNeb every q4hr solumedrol levofloxacin Sputum culture pending Blood culture - positive for Staph epidermidis likely contamination, no systemic signs of infection Full respiratory panel positive for human metapneumovirus new onset Afib RVR Eliquis 5 mg p.o. twice daily, Toprol XL 50 mg daily, pravastatin 20 mg daily. cardiology consulted monitor on telemetry History of hyperlipidemia Resume home pravastatin Currently heavy smoker On nicotine patch daily Lovenox for DVT prophylaxis. On Protonix Full code Regular cardiac diet continue breathing treatments, steroids and Levofloxacin, may need home o2 at dc, continue above treatment[facility]
[2024-02-01] VITALS (8 sets, daily range): BP systolic 134–142; BP diastolic 70–97; PULSE 65–120; RESP 16–24; TEMP 35.9–36.6; O2SAT 88–98; BMI 28.5
--- NOTE | 2024-02-01 05:11 | PC.NURSE ---
Pt is alert and oriented x4, and currently tolerating 2L of O2 well. Pt lungs remain diminished and slight wheezing continues. Pt has rested well this shift and denies pain and needs. pt son is at bedside
[2024-02-01] MEDS: BUDESONIDE 0.5MG/2ML NEB 0.5 MG IH (06:15)
[2024-02-01] MEDS: IPRATROPIUM/ALBUTEROL 3 ML NEB IH ×2 (06:15→10:53)
[2024-02-01 07:06] LABS: Basophils # 0.1 K/mm3 (0-0.2); Basophils % 0.7 % (0.1-2.0); Eosinophils % 0.3 % (0.1-12.0); Hematocrit 43.5 % (37.0-47.0); Hemoglobin 14.1 g/dL (12.2-16.2); Lymphocytes # 1.2 K/mm3 (0.7-4.5); Lymphocytes % 15.2 % (10-50); Mean Corpuscular HGB Conc 32.3 g/dL (31.8-35.4); Mean Corpuscular Hemoglobin 32.4 pg (27.0-31.2); Mean Corpuscular Volume 100.3 fl (81-99); Mean Platelet Volume 8.6 fl (7.4-10.4); Monocytes # 0.5 K/mm3 (0.1-1.0); Monocytes % 5.9 % (1.7-9.3); Neutrophils # 6.2 K/mm3 (1.8-7.8); Neutrophils % 77.9 % (37.0-80.0); Platelet Count 215 K/mm3 (142-424); Red Blood Count 4.34 M/mm3 (4.20-5.40); Red Cell Distribution Width 13.5 % (11.5-17.5)
[2024-02-01 07:08] LABS: Blood Urea Nitrogen 28 mg/dl (7-17); Calcium 9.3 mg/dl (8.4-10.2); Carbon Dioxide 36 mmol/L (22.0-30.0); Chloride 92 mmol/L (98-107); Creatinine Clearance Estimated 50 mL/min (50-200); Estimated Glomerular Filt Rate 69 ml/min (>60); GFR (African American) 83 ML/MIN (>60); Glucose 128 mg/dl (74-100); Sodium 133 mmol/L (136-145)
--- NOTE | 2024-02-01 07:59 | P.DS_ITS ---
General Admission date:: 01/27/24 Discharge date: 02/01/24 HPI HPI HPI: This is a 84-year-old female largely with apparently no previous medical history only that long standing heavy smoaker , with more than a pack per day per more than 30 years, ahe also takes cholesterol medicine at home, who presented emergency department for evaluation of shortness of breath and cough. History obtained by interviewing patient, Daughter who is also a POA at bedside contribute with history patient is [place]. Onset was acute over the last week, with progressively intensification of cough and SOB in the last 3 days. No chest pain. no fever. Has never been diagnosed with COPD and does not take any controller inhalers. No other acute complaints at this time. Admitted for continuous inpatient management. Hospital Course Hospital Course Hospital Course: 84-year-old female largely with apparently no previous medical history of lung standing heavy smoker. Smokes at least a pack a day for at least the past 30 years. On cholesterol medication. Presented to the ER with shortness of breath. Found to be positive for human metapneumovirus. Had new oxygen requirement. Being treated for COPD exacerbation. Pulmonology assisting with care. Patient on stable oxygen, meeting criteria for discharge home to continue to convalesce. Will continue steroids and antibiotics. Therapy evaluated, stable to discharge home with 23/02 care. Family to stay with patient for the next few days. DME ordered from [facility]. Problems addressed as follows: Acute hypoxemic and hypercapnic respiratory failure in the setting of COPD exacerbation. Viral pneumonia (due to human metapneumovirus) -Patient presented with new oxygen requirement shortness of breath. Comprehensive respiratory panel positive for human metapneumovirus. Oxygen weaned, tolerating 2 L nasal cannula oxygen for over 24 hours prior to discharge home. Pulmonology was consulted, initiated on antibiotics, steroids, breathing treatments. Showed gradual improvement. Plan to continue supplemental oxygen as needed for goal saturations above 90%. Recommend 2 to 3 L oxygen at rest and 3-5 with exertion. Inhalers weaned to Trelegy 200 along with DuoNebs every 6 hours as needed. Continue steroids 40 mg daily to complete total of 5 days from day of discharge. Continue levofloxacin 750 mg daily for 5 days. Sputum culture still pending at discharge. Blood cultures positive for single sample of Staph epidermidis. Likely contaminant. -Patient necessitating supplemental oxygen 2 to 3 L continuously. Room air saturation of 88% at rest obtained on morning of discharge. -Home health ordered. New onset A-fib with RVR. -Cardiology consulted. Patient showed improvement with amiodarone. Transition to metoprolol succinate day of discharge. Continue 100 mg daily. Initiated on Eliquis 5 mg p.o. twice daily. Rate controlled on day of discharge. Recommend close follow-up with cardiology in the coming weeks. History of hyperlipidemia: Resume home pravastatin Currently heavy smoker: Nicotine patch prescribed at discharge Total time spent on discharge 32 minutes in counseling, documentation, chart review, and direct care with patient. Exam Data for Last 24 hours Vital signs and Labs for Last 24 Hours: Temp Pulse Resp BP Pulse Ox O2 Del Method O2 Flow Rate 97.8 F 116 H 18 142/96 H 98 Nasal Cannula 4 02/01/24 07:50 02/01/24 07:50 02/01/24 07:50 02/01/24 07:50 02/01/24 07:50 02/01/24 07:50 02/01/24 07:50 FiO2 32 01/31/24 18:31 Laboratory Results - last 24 hr 01/31/24 07:05: WBC 8.0, RBC 4.15 L, Hgb 13.9, Hct 40.9, MCV 98.4, MCH 33.4 H, MCHC 33.9, RDW 13.4, Plt Count 187, MPV 8.5, Neut % (Auto) 83.3 H, Lymph % (Auto) 10.3, [place] % (Auto) 6.0, Eos % (Auto) 0.1, Baso % (Auto) 0.2, Neut # (Auto) 6.6, Lymph # (Auto) 0.8, [place] # (Auto) 0.5, Eos # (Auto) 0.0, Baso # (Auto) 0.0, Sodium 134 L, Potassium 3.9, Chloride 94 L, Carbon Dioxide 34 H, Anion Gap 9.9, BUN 26 H, Creatinine 0.70, Estimated Creat Clear 51, Estimated GFR 80, Est GFR ( Amer) 97, Glucose 116 H, Calcium 9.0 02/01/24 06:03: WBC 8.0, RBC 4.34, Hgb 14.1, Hct 43.5, MCV 100.3 H, MCH 32.4 H, MCHC 32.3, RDW 13.5, Plt Count 215, MPV 8.6, Neut % (Auto) 77.9, Lymph % (Auto) 15.2, [place] % (Auto) 5.9, Eos % (Auto) 0.3, Baso % (Auto) 0.7, Neut # (Auto) 6.2, Lymph # (Auto) 1.2, [place] # (Auto) 0.5, Eos # (Auto) 0.0, Baso # (Auto) 0.1, Sodium 133 L, Potassium 4.0, Chloride 92 L, Carbon Dioxide 36 H, Anion Gap 9.0, BUN 28 H, Creatinine 0.80, Estimated Creat Clear 50, Estimated GFR 69, Est GFR ( Amer) 83, Glucose 128 H, Calcium 9.3 I & O for Last 24 hours: Intake & Output 01/29/24 01/30/24 01/31/24 02/01/24 23:59 23:59 23:59 23:59 Intake Total 730 / 850 1590 / 1710 840 / 960 120 / 120 Output Total 0 / 0 0 / 0 0 / 0 Balance 730 / 850 1590 / 1710 840 / 960 120 / 120 Weight 74.29 kg 75.024 kg 75.024 kg 72.938 kg Microbiology Reports for the Last 24 Hours: Microbiology 01/27/24 22:29 Blood Blood Culture - Preliminary NO GROWTH AFTER 4 DAYS Constitutional Constitutional: no acute distress, average body habitus, chronically ill a ppearing and cooperative *Routine HEENT Exam Head: Present normocephalic Eye: Present EOMI and PERRL ENT: Present mucous membranes moist *Routine Neck Exam Neck: Present supple; Absent lymphadenopathy *Routine Respiratory Exam Respiratory: Present prolonged expiratory phase, wheezes and normal respiratory effort; Absent rhonchi or crackles *Routine Cardiovascular Exam Cardiovascular: Present RRR *Routine Abdominal Exam Abdominal: Present soft and normoactive bowel sounds; Absent tenderness *Routine Rectal Exam Patient deferred: visual exam *Routine Exam Patient deferred: external exam *Routine Extremities Exam Extremities: Absent cyanosis, clubbing or edema *Routine Skin Exam Skin: Present warm; Absent rash *Routine Neurological Exam Neurological: Present alert, oriented X3 and moving all extremities; Absent altered mental status Results Data Completed and Pending Labs on day of discharge: Labs from last 24 hours 02/01/24 01/31/24 06:03 07:05 WBC 8.0 8.0 RBC 4.34 4.15 L Hgb 14.1 13.9 Hct 43.5 40.9 MCV 100.3 H 98.4 MCH 32.4 H 33.4 H MCHC 32.3 33.9 RDW 13.5 13.4 Plt Count 215 187 MPV 8.6 8.5 Neut % (Auto) 77.9 83.3 H Lymph % (Auto) 15.2 10.3 [place] % (Auto) 5.9 6.0 Eos % (Auto) 0.3 0.1 Baso % (Auto) 0.7 0.2 Neut # (Auto) 6.2 6.6 Lymph # (Auto) 1.2 0.8 [place] # (Auto) 0.5 0.5 Eos # (Auto) 0.0 0.0 Baso # (Auto) 0.1 0.0 Sodium 133 L 134 L Potassium 4.0 3.9 Chloride 92 L 94 L Carbon Dioxide 36 H 34 H Anion Gap 9.0 9.9 BUN 28 H 26 H Creatinine 0.80 0.70 Estimated Creat Clear 50 51 Estimated GFR 69 80 Est GFR ( Amer) 83 97 Glucose 128 H 116 H Calcium 9.3 9.0 Preliminary micro results at discharge 01/27/24 22:29 Blood Culture - Preliminary Blood NO GROWTH AFTER 4 DAYS 01/27/24 22:29 Blood Culture - Preliminary Blood Gram Positive Cocci DS: Diagnosis Discharge Diagnosis (1) Respiratory failure with hypoxia and hypercapnia: Status: Acute Code(s): J96.91 - Respiratory failure, unspecified with hypoxia; J96.92 - Respiratory failure, unspecified with hypercapnia Qualifiers: Chronicity: acute Qualified Code(s): J96.01 - Acute respiratory failure with hypoxia; J96.02 - Acute respiratory failure with hypercapnia (2) Acute exacerbation of chronic obstructive pulmonary disease: Status: Acute Code(s): J44.1 - Chronic obstructive pulmonary disease with (acute) exacerbation (3) Upper respiratory infection, viral: Status: Acute Code(s): J06.9 - Acute upper respiratory infection, unspecified (4) Hyperlipemia: Status: Acute Code(s): E78.5 - Hyperlipidemia, unspecified Qualifiers: Hyperlipidemia type: unspecified Qualified Code(s): E78.5 - Hyperlipidemia, unspecified (5) Current smoker: Status: Acute Code(s): F17.200 - Nicotine dependence, unspecified, uncomplicated Meds Home Medications and Allergies Home Medications Medication Instructions Recorded Confirmed Type pravastatin 20 mg tablet 20 mg PO DAILY 09/06/19 01/28/24 History apixaban 5 mg tablet (Eliquis) 5 mg PO BID 30 days #60 tabs 02/01/24 Rx fluticasone fur. 200 mcg-umeclid 1 inh inhalation DAILY 30 days #60 02/01/24 Rx 62.5 mcg-vilant 25 mcg ea inhalat.powder (Trelegy Ellipta) ipratropium 0.5 mg-albuterol 3 mg 3 ml inhalation Q6HP PRN Shortness 02/01/24 Rx (2.5 mg base)/3 mL nebulization Of Breath Or Wheezing 30 days #180 soln mL levofloxacin 750 mg tablet 750 mg PO 1100 4 days #4 tabs 02/01/24 Rx metoprolol succinate 100 mg 100 mg PO DAILY 30 days #30 tabs 02/01/24 Rx tablet,extended release 24 hr nicotine 21 mg/24 hr daily 21 mg transdermal DAILYP PRN 02/01/24 Rx transdermal patch Nicotine Cravings #28 ea prednisone 20 mg tablet 40 mg (2 x 20 mg) PO DAILY 4 days 02/01/24 Rx #8 tabs New Prescriptions to Start Prescriptions: apixaban [Eliquis] Lev,Jerel sxgjemdorkn-zpsfjnzdr-ohdvemzu [Trelegy Ellipta] Lev,Jerel ipratropium-albuterol Lev,Jerel levofloxacin Lev,Jerel metoprolol succinate Lev,Jerel nicotine Lev,Jerel prednisone Lev,Jerel Allergies Allergy/AdvReac Type Severity Reaction Status Date / Time No Known Allergies Allergy Verified 01/27/24 22:26 Discharge Plan Disposition Patient Disposition: Home Health Service Condition: Fair Discharge Order Discharge Orders: Discharge Order (Routine); Ordered 02/01/24 Ordered By: Jerel Ohara Follow up Plan Follow up with: Mary Shepherd APRN [Nurse Practitioner] - 02/16/24 1:45 pm Hanna Dye MD [Primary Care Provider] - 02/09/24 10:00 am Michele Hirsch MD [Physician] - 02/09/24 11:30 am Prescriptions/Medication Reconciliation: New Eliquis 5 mg Tablet 5 mg PO BID 30 Days Qty: 60 0RF Trelegy Ellipta 200-62.5-25 mcg Blister With Device 1 inh inhalation DAILY 30 Days Qty: 60 0RF ipratropium-albuterol 0.5 mg-3 mg(2.5 mg base)/3 mL Solution For Nebulization 3 ml inhalation Q6HP PRN (Reason: Shortness Of Breath Or Wheezing) 30 Days Qty: 180 0RF metoprolol succinate 100 mg Tablet Extended Release 24 Hr 100 mg PO DAILY 30 Days Qty: 30 0RF nicotine 21 mg/24 hr Patch 24 Hour 21 mg transdermal DAILYP PRN (Reason: Nicotine Cravings) Qty: 28 0RF prednisone 20 mg Tablet 40 mg PO DAILY 4 Days Qty: 8 0RF levofloxacin 750 mg Tablet 750 mg PO 1100 4 Days Qty: 4 0RF Continued pravastatin 20 MG tablet 20 mg PO DAILY Other Ambulatory Orders: Home Medical Equipment (Routine) Location: None Selected Ordered By: Jerel Ohara Problem Reconciliation Problems Reviewed?: Yes Patient Discharge Instructions ACTIVITY: Continue current activity DIET: continue same diet Patient Instructions: DI for Pneumonia -- Adult, Human Metapneumovirus Infection Providers Primary Care Provider: Hanna Dye Admit Provider: Joanna Van Attending Provider: Joanna Van
[2024-02-01] MEDS: METHYLPREDNISOLONE SOD SUCC 125MG VIAL 60 MG IV (08:16)
[2024-02-01] MEDS: PANTOPRAZOLE 40MG TABLET 40 MG PO (08:16)
[2024-02-01] MEDS: APIXABAN 5MG TABLET 5 MG PO (08:16)
[2024-02-01] MEDS: POLYETHYLENE GLYCOL 3350 17 GM PACKET PO (08:16)
[2024-02-01] MEDS: METOPROLOL SUCCINATE XL 50MG TABLET 50 MG PO ×2 (08:16→11:19)
--- NOTE | 2024-02-01 09:38 | P.PN_ITS ---
Subjective *Date: 02/01/24 *Time: 10:19 Interval history: No acute respiratory events over the weekend. Patient denies any significant improvement in her respiratory status. Pulmonology Exam Inpatient Vital signs and Labs for Last 24 Hours: Temp Pulse Resp BP Pulse Ox O2 Del Method O2 Flow Rate 97.8 F 120 H 18 142/96 H 98 Nasal Cannula 3 02/01/24 07:50 02/01/24 08:00 02/01/24 07:50 02/01/24 07:50 02/01/24 07:50 02/01/24 09:00 02/01/24 09:00 FiO2 32 01/31/24 18:31 Laboratory Results - last 24 hr 02/01/24 06:03: WBC 8.0, RBC 4.34, Hgb 14.1, Hct 43.5, MCV 100.3 H, MCH 32.4 H, MCHC 32.3, RDW 13.5, Plt Count 215, MPV 8.6, Neut % (Auto) 77.9, Lymph % (Auto) 15.2, [place] % (Auto) 5.9, Eos % (Auto) 0.3, Baso % (Auto) 0.7, Neut # (Auto) 6.2, Lymph # (Auto) 1.2, [place] # (Auto) 0.5, Eos # (Auto) 0.0, Baso # (Auto) 0.1, Sodium 133 L, Potassium 4.0, Chloride 92 L, Carbon Dioxide 36 H, Anion Gap 9.0, BUN 28 H, Creatinine 0.80, Estimated Creat Clear 50, Estimated GFR 69, Est GFR ( Amer) 83, Glucose 128 H, Calcium 9.3 Temp Pulse Resp BP Pulse Ox O2 Del Method O2 Flow Rate 98.7 F 100 H 17 139/74 97 Nasal Cannula 2 01/29/24 07:31 01/29/24 08:00 01/29/24 07:31 01/29/24 07:31 01/29/24 07:31 01/29/24 07:31 01/29/24 07:31 I & O for Labs for Last 24 Hours: Intake & Output 01/29/24 01/30/24 01/31/24 02/01/24 23:59 23:59 23:59 23:59 Intake Total 730 / 850 1590 / 1710 840 / 960 360 / 360 Output Total 0 / 0 0 / 0 0 / 0 Balance 730 / 850 1590 / 1710 840 / 960 360 / 360 Weight 163 lb 12.502 oz 165 lb 6.4 oz 165 lb 6.394 oz 160 lb 12.8 oz Intake & Output 01/26/24 01/27/24 01/28/24 01/29/24 23:59 23:59 23:59 23:59 Intake Total 1247 / 1247 0 / 0 Output Total 0 / 0 0 / 0 Balance 1247 / 1247 0 / 0 Weight 175 lb 162 lb 4.798 oz 163 lb 12.8 oz Microbiology Reports for the Last 24 Hours: Microbiology 01/27/24 22:29 Blood Blood Culture - Preliminary NO GROWTH AFTER 4 DAYS Microbiology 01/27/24 22:29 Blood Blood Culture - Preliminary 01/27/24 22:29 Blood Blood Culture - Preliminary NO GROWTH AFTER 24 HOURS Constitutional: Present moderate distress Head: Present normocephalic and atraumatic ENT: Present normal exam, normal oropharynx and mucous membranes moist Neck: Present normal inspection and full ROM Respiratory: Present prolonged expiratory phase, respiratory distress, wheezes and able to speak in complete sentences Cardiac: Present S1/S2, Tachycardia and radial pulses present GI: Present soft and distention; Absent tenderness or guarding Rectal (female): Present deferred (female): Present deferred Skin: Present intact; Absent cyanosis or jaundice Neuro: Present alert, awake and oriented x 3 Extremities: Present normal inspection; Absent clubbing or cyanosis Psychiatric: Present normal affect and cooperative Assessment and Plan *Assessment and plan (1) Acute exacerbation of chronic obstructive pulmonary disease: Status: Acute Category: Medical Code(s): J44.1 - Chronic obstructive pulmonary disease with (acute) exacerbation (2) Respiratory failure with hypoxia and hypercapnia: Status: Acute Qualifiers: Chronicity: acute Qualified Code(s): J96.01 - Acute respiratory failure with hypoxia; J96.02 - Acute respiratory failure with hypercapnia Category: Medical Code(s): J96.91 - Respiratory failure, unspecified with hypoxia; J96.92 - Respiratory failure, unspecified with hypercapnia (3) Dyspnea on exertion: Status: Acute Category: Medical Code(s): R06.09 - Other forms of dyspnea (4) Pneumonia: Status: Acute Category: Medical Code(s): J18.9 - Pneumonia, unspecified organism (5) Upper respiratory infection, viral: Status: Acute Category: Medical Code(s): J06.9 - Acute upper respiratory infection, unspecified Plan Ms. Floyd is a 84-year-old female current smoker greater than [id number] smoking history, not using any at baseline presented to the ER with worsening respiratory distress and pulmonary was called for further evaluation and management. Patient was gradually worsening respiratory saline with worsening cough and productive phlegm prior to admission CTA upon admission, extensive upper lobe predominant emphysematous changes. Bilateral lower lobe tree-in-bud/airspace disease noted. No dense consolidative changes noted. No evidence of pulmonary embolism noted. Patient currently being managed for COPD exacerbation, recent ablation therapies and doxycycline. Comprehensive respiratory viral PCR panel positive for human metapneumovirus. Afebrile. Hemodynamically stable. Initial examination, severe respiratory distress with bilateral diffuse wheezing. Interval update: No acute respiratory events over the weekend. Continued improvement in respiratory status. Blood culture from 1 bottle growing staph epi. No sputum cultures available. Continue to receive levofloxacin and methylprednisolone. Continue to have wheezing on auscultation though improved from prior. Plan: F/u CXR Continue oxygen supplementation to maintain O2 saturation goal of 90% above, currently on 2-3 L saturating 90% and above. Recommend current oxygen supplementation of 2-3 at rest and 3-5 with exertion. Wean inhalers to Trelegy 200 along with DuoNebs every 6 hours on as-needed basis Wean steroids to prednisone 40 mg daily to complete total of 5-day course from today Continue levofloxacin 750 mg daily x 5 days Obtain sputum Gram stain culture sensitivities # Thank you for involving pulmonary in this patient care. Will follow the patient in pulmonary clinic 5 to 10 days post discharge
--- NOTE | 2024-02-01 10:19 | XR_ITS ---
FINAL REPORT CLINICAL HISTORY: PNM COMPARISON: 01/27/2024 FINDINGS: A single portable view of the chest was obtained. The heart size and pulmonary vascularity are within normal limits. The mediastinum is within normal limits. There is mild worsening of the right base opacities, atelectasis versus pneumonia. The bony thorax is intact. IMPRESSION: Mild worsening of the right base opacities, atelectasis versus pneumonia. Reviewed, Interpreted and Dictated by Horacio Partida III, MD Transcribed by Gia Guerrero Authenticated and [facility]
[2024-02-01] MEDS: levoFLOXacin 750 MG TABLET PO (11:19)
--- NOTE | 2024-02-02 13:48 | CARE MANAGER ---
Contacted patient and daughter related to hospital discharge. They state the patient is having difficulty with urinating. She was up every 2 hours last night because she felt like she had to urinate and couldn't. Today she is on her 3rd bottle of water and has only dribbled . We discussed her medications and if patient was feeling uncomfortable. If patient continues to have limited output they will bring the patient to ER, but if is comfortable and having some will see if she can get into PCP tomorrow. Denies any other questions as this stime. CHRISTY Cohen
== END 2024-02-01 14:06 | disposition home health service (06) | DRG 189 ==
LOC: ER 23:17 → 2ND 23:47
PROVIDERS: Nurse Practitioner Family; Admitting Provider Internal Medicine; Emergency Provider Emergency Medicine; PCP Family Medicine; Visit Provider Internal Medicine
DX: J96.01 Acute respiratory failure with hypoxia (principal); J12.3 Human metapneumovirus pneumonia; J44.1 Chronic obstructive pulmonary disease with (acute) exacerbation; J96.02 Acute respiratory failure with hypercapnia; E78.5 Hyperlipidemia, unspecified; F17.210 Nicotine dependence, cigarettes, uncomplicated; I48.91 Unspecified atrial fibrillation
CPT/HCPCS: 36415; 71045; 71275; 80048; 80053; 82803; 83605; 83735; 83880; 84484; 85007; 85025; 85027; 87040; 87077; 87186; 87581; 87632; 87635; 87636; 87798; 93005; 93306; 94640; 94761; 97162; 97166; 97530; 99291; J0456; J1100; J1650; J1956; J2919; J3370; J3475; J7030; J7620; Q9967

== ENCOUNTER 2024-02-18 14:07 | Outpatient (CLI) | payer MEDICARE, SELFPAY | END 2024-02-18 23:59 | disposition home or self-care (01) | LOC: RT 14:10 | PROVIDERS: PCP Family Medicine; Visit Provider Internal Medicine Pulmonary Disease | DX: J43.9 Emphysema, unspecified (principal); F17.210 Nicotine dependence, cigarettes, uncomplicated | CPT/HCPCS: 94762 ==

== ENCOUNTER 2024-02-25 07:26 | Outpatient (CLI) | payer MEDICARE, SELFPAY ==
--- NOTE | 2024-02-25 07:27 | NM_ITS ---
APPROVED REPORT Exam: Nuclear Stress Test Indication: soa..fatigue Patient Location: Outpatient Stress Tech: Ally TOBIN Tech:THI Roman RT(R)(N) Ht: 5 ft 7 in Wt: 157 lbs Bra Size: 42b HR: 100 bpm BP: 135/79 mmHg BSA: 1.82 m2 TID: 1.19 BMI: 24.5 History: soa..fatigue Procedure: Patient received 0.4 mg of intravenous Lexiscan, resting heart rate 100 bpm, resting blood pressure 135/79 mmHg, with Lexiscan maximum heart rate achieved was 127 bpm which is 85 % of the maximum predicted heart rate and blood pressure was 153/79 mmHg. With Lexiscan, patient denied any complaint of chest pain. The patient was not able to lay on her abdomen for prone images. Cardiac Stress and Resting SPECT Images: Cardiac Stress and Resting SPECT images were obtained using technetium 99m Myoview 31.5 mCi stress and 10.77 mCi at rest. The patient could not lie on her abdomen. Therefore, prone stress imaging could not be performed. This may affect the diagnostic interpretation of the study findings. Resting and stress imaging in supine positions demonstrate no evidence of fixed or reversible perfusion defects. Gated imaging demonstrates normal global and regional LV systolic function. LVEF is calculated at 62%. Conclusion: No evidence of fixed or reversible perfusion defects. Gated imaging demonstrates normal global and regional LV systolic function. LVEF is calculated at 62%. Electronically signed by : Fabienne Castro MD 02/25/2024 12:12:16
--- NOTE | 2024-02-25 09:43 | CA_ITS ---
APPROVED REPORT Exam: Pharmacologic Technologist: Ally Bruce, Ht: 5 ft 7 in Wt: 154 lbs BSA: 1.81 m2 HR: 91 bpm BP: 135/79 mmHg Rhythm: NSR Medical History Medications: Pravastatin,,,,, Metoprolol Succinate,,,,, Albuterol,,,,, Apixaban,,,,, Trelegy,,,,, Stress Test Details Test: LEXISCAN Reason for pharmacologic stress test: physical limitation. HR Resting HR: 100 bpm Max Heart Rate (APMHR): 138 bpm Max HR Achieved: 127 bpm Target HR (85% APMHR): 117 bpm % of APMHR: 92 Recovery HR: 106 bpm BP Resting BP: 135/79 mmHg Max BP: 153/79 mmHg Recovery BP: 129.0/87.0 mmHg ECG Resting ECG: NSR, low voltage QRS, PVC Stress ECG: No significant ST changes Arrhythmia: PACs, PVCs, 1 ventricular couplet is noted. Clinical Exercise duration: 04:00 min Highest Stage Achieved: Exercise capacity: 1.0 METs Stress ECG Conclusion Symptoms: Light-headed. No CP. Arrhythmias/Ectopy: PACs, PVCs, 1 ventricular couplet is noted. ST-T Changes: No significant ST changes. Conclusion: Unremarkable Lexiscan stress. Myoview images are reported separately. Test Summary REST . . . . . . . Sitting REST 04:32 . . 100 . 135/ 79 . . Stage 1 01:00 . . 111 . . . . Stage 2 01:00 . . 126 . 146/ 94 . . Stage 3 01:00 . . 117 . 151/ 88 . . Stage 4 01:00 . . 111 . 153/ 79 . Stop exercise at 04:00 RECOVERY 01:00 . . 106 . . . . RECOVERY 02:00 . . 107 . 148/ 78 . . RECOVERY 03:00 . . 105 . 129/ 87 . . RECOVERY 03:13 . . 105 . 129/ 87 . . Electronically signed by : Fabienne Castro MD 02/25/2024 12:09:31
== END 2024-02-25 23:59 | disposition home or self-care (01) ==
LOC: RAD 07:27
PROVIDERS: PCP Family Medicine; Visit Provider Nurse Practitioner Family
DX: R06.09 Other forms of dyspnea (principal); I48.91 Unspecified atrial fibrillation
CPT/HCPCS: 78452; 93017; 93018; A9502; J2785

== ENCOUNTER 2024-05-06 07:50 | Outpatient (CLI) | payer MEDICARE, SELFPAY ==
--- NOTE | 2024-05-06 08:10 | PC.NURSE ---
Pt unable to do PFT unable to get any loops on her after multiple attempts
== END 2024-05-06 23:59 | disposition home or self-care (01) ==
LOC: RT 07:51
PROVIDERS: PCP Nurse Practitioner; Visit Provider Internal Medicine Pulmonary Disease
DX: R06.09 Other forms of dyspnea (principal)
CPT/HCPCS: 94618

== ENCOUNTER 2024-11-02 21:34 | Emergency (ER) | payer MEDICARE, SELFPAY ==
[2024-11-02 21:54] VITALS: BP 138/70; PULSE 120; RESP 15; TEMP 36.2; O2SAT 98; BMI 28.5
--- NOTE | 2024-11-02 22:01 | ECG_ITS ---
APPROVED REPORT Exam: Resting ECG HR:141 bpm ECG Measurements Heart Rate 141 AXES QRSd 75 QRS -5 QT 281 T 46 QTc 363 Conclusion ATRIAL FIBRILLATION WITH RAPID VENTRICULAR RESPONSE LOW QRS VOLTAGE IN PRECORDIAL LEADS [QRS DEFLECTION < 1.0 mV IN CHEST LEADS] POSSIBLE ANTERIOR MYOCARDIAL INFARCTION , PROBABLY OLD [30 ms Q WAVE IN V3/V4, OR R < 0.2 mV IN V4] ABNORMAL RHYTHM ECG UNCONFIRMED REPORT Electronically signed by : SOPHIA HARPER, 11/03/2024 05:13:00
--- NOTE | 2024-11-02 23:02 | XR_ITS ---
PROCEDURE INFORMATION: Exam: XR Right Hand Exam date and time: 11/02/2024 11:04 PM Age: 84 years old Clinical indication: Injury or trauma; Other: Laceration; Right; Index finger and middle finger and ring finger; Additional info: Laceration to 3rd and 4th digit, swelling to 5th TECHNIQUE: Imaging protocol: Radiologic exam of the right hand. Views: 3 or more views. COMPARISON: No relevant prior studies available. FINDINGS: Bones/joints: Mild degenerative change 1st CMC. No fracture or retained foreign body. IMPRESSION: No acute findings.
--- NOTE | 2024-11-02 23:03 | ED_ITS ---
Discharge Plan Disposition Patient Disposition: Home, Self-Care Prescriptions Prescriptions: No Action Anoro Ellipta 62.5-25 mcg/actuation blister with device 1 inh inhalation DAILY 90 Days Qty: 180 2RF Eliquis 5 mg tablet 5 mg PO BID 30 Days Qty: 60 5RF pravastatin 20 MG tablet 20 mg PO DAILY ipratropium-albuterol 0.5 mg-3 mg(2.5 mg base)/3 mL Solution For Nebulization 3 ml inhalation Q6HP PRN (Reason: Shortness Of Breath Or Wheezing) 30 Days Qty: 180 0RF metoprolol succinate 100 mg Tablet Extended Release 24 Hr 100 mg PO DAILY 30 Days Qty: 30 0RF Referrals Follow up/Referrals: Provider,Referral, MD [Primary Care Provider] - See instructions Activity Restrictions/Add. Instructions Additional Instructions/Restrictions: Please keep wound clean dry and covered. Monitor for signs of infection. Clinical Impressions Clinical Impression: Atrial fibrillation with RVR, Finger laceration Instructions Patient Instructions: DI for Laceration Repair Print Language Print Language: Citizen Of [place] Discharge ED Provider: Kalyan Munson General Adult HPI General Chief complaint: Wound/Laceration Stated complaint: AO 4-2 left hand cut fell over walker Time Seen by Provider: 11/02/24 23:03 Mode of Arrival: Ambulatory Source of Information: Patient Description of Symptoms (Recalled from ER Triage Doc. by RN): patient states she cut her right middle finger and ring finger on unknown opbject while lifting her walker up. she also fell, denies hitting head. her right pinky is also swollen. not utd on her tdap. on eliquis. in triage patients heart rate was irregular and was as high as 130. has hx of afib History of Present Illness HPI narrative: 84-year-old female with history of A-fib on Eliquis presents with laceration to her right third and fourth digits. She was lifting her walker up when she fell. She denies hitting her head neck chest abdomen. She reports she went down easy and got herself up easy . Denies any chest pain abdominal pain shortness of breath headache neck pain back pain. Denies any pain in the hand but was concerned about the laceration. It was bleeding quite a bit before arrival but is currently hemostatic. She has history of A-fib and reports that her heart rate always goes up high when she goes to the doctor. She is not worried about her heart rate being high currently. Related Data Home Medications ?Medication ?Instructions ?Recorded ?Confirmed pravastatin 20 mg tablet 20 mg PO DAILY 09/06/19 10/06/24 Previous Rx's ?Medication ?Instructions ?Recorded ipratropium 0.5 mg-albuterol 3 mg 3 ml inhalation Q6HP PRN Shortness 02/01/24 (2.5 mg base)/3 mL nebulization Of Breath Or Wheezing 30 days #180 soln mL metoprolol succinate 100 mg 100 mg PO DAILY 30 days #30 tabs 02/01/24 tablet,extended release 24 hr apixaban 5 mg tablet (Eliquis) 5 mg PO BID 30 days #60 tabs 08/15/24 umeclidinium 62.5 mcg-vilanterol 1 inh inhalation DAILY 90 days 10/06/24 25 mcg/actuation powdr for #180 ea inhalation (Anoro Ellipta) Allergies Allergy/AdvReac Type Severity Reaction Status Date / Time No Known Allergies Allergy Verified 10/06/24 14:33 [facility] Disclaimer: The information contained in this section may have been updated after the patient was seen, as this information can be updated by other users. Medical History Paroxysmal atrial fibrillation COPD (chronic obstructive pulmonary disease) New onset a-fib Pulmonary emphysema History of smoking 30 or more pack years Pneumonia Dyspnea on exertion Atrial fibrillation with RVR Hyperlipemia Cataract Surgical History Hx of cataract surgery Family History Other Family history of cancer Social History (Updated 10/06/24 @ 14:42 by STEFFI oSriano) Smoking Status: Unknown if ever smoked alcohol intake: never current occupational status: retired Travel in the last 8 weeks: None household members: spouse housing: house caffeine: No Have you lived/traveled outside [place] in past 30 days?: No Contact w/someone who lives/traveled outside [place] past 30 days?: No Exposure to someone with infectious disease in past 14 days?: No Do you have a fever (greater than 100.4 F or 38 C)?: No Have you tested positive for COVID-19: No Exposed to someone with COVID-19 in past 14 days?: No Do you have a sore throat?: No Do you have a cough?: No Do you have any weakness?: No Do you have any diarrhea?: No Are you experiencing any unusual bleeding?: No Do you have any muscle aches/pain?: No Do you have any abdominal pain?: No Are you experiencing loss of taste or smell?: No Other Medical History Have you received the Flu Vaccine for this season: No Have you received the Pneumonia Vaccine: No ROS Obtained: Yes All systems reviewed & no additional complaints except as documented Physical Exam General General appearance: alert and in no apparent distress Head Head exam: atraumatic and normocephalic Eye Eye exam: Present normal appearance, PERRL and EOMI ENT ENT exam: Present normal oropharynx and normal external ear exam Neck Neck exam: Present normal inspection and full ROM; Absent tenderness Chest Chest inspection: Present normal inspection and symmetric chest wall rise; Absent tenderness Respiratory Respiratory exam: Present normal lung sounds bilaterally; Absent respiratory distress Cardiovascular Cardiovascular exam: Present regular rate and normal rhythm Abdominal Exam Abdominal exam: Present soft; Absent distention, tenderness or guarding Extremities Exam Extremities exam: Present other (Laceration over the dorsum of the right third PIP, tiny laceration over the dorsum of the right fourth PIP. Extensor function intact. Joint space does not appear violated. There are some bruising to the fifth digit without laceration.); Absent edema or joint swelling Back Exam Back exam: Present normal inspection; Absent tenderness Neurological Exam Neurological exam: Present alert and oriented X3; Absent motor sensory deficit Psychiatric Psychiatric exam: Present normal affect and normal mood Skin Skin exam: Present warm, dry and normal color Lymphatic Lymphatic Findings: no adenopathy Medical Decision Making Medical Records Medical records reviewed: Yes I reviewed the patient's medical records. Screening: Per USPSTF and CDC recommendations, given the prevalence of disease in our region, it is our hospital?s policy to screen for HIV and viral Hepatitis for all patients aged 18 and over and those with ongoing risk factors. [place] Inquiry Pt receiving controlled substance: No [place] was queried for this patient: No Vital Signs: 11/02/24 21:54 11/02/24 23:44 Temperature 97.1 F L 97.9 F Temperature Source Oral Pulse Rate 90 Pulse Rate [Right] 120 H Respiratory Rate 15 18 Blood Pressure 142/94 H Blood Pressure [Right Arm] 138/70 Blood Pressure Mean [Right Arm] 92 Blood Pressure Source [Right Arm] Automatic Cuff Blood Pressure Position [Right Arm] Sitting 02 Sat by Pulse Oximetry 98 Oxygen Delivery Method Room Air Room Air Lab Data Lab results reviewed: Yes I reviewed the patient's lab results. Orders (Tests/Meds): ED MEDICATIONS Discontinued Medications Generic Name Dose Route Start Last Admin Trade Name Freq PRN Reason Stop Dose Admin Tetanus/Reduced Diphtheria/Acell Pertussis 0.5 ml 11/02/24 23:02 11/02/24 23:16 Tet/Diphth/Pert-Adult 0.5ml Syringe IM 11/02/24 23:03 0.5 ml .ONCE ONE Administration ORDERS Category Date Time Status Hand XR right minimum 3 views [XR hand RT min 3V] Stat Exams 11/02/24 23:02 Completed Medical Decision Narrative: 84-year-old female with history of A-fib on blood thinner presents with hemostatic laceration to the right hand after a mild fall.. History was obtained via interactive discussion with patient, family, chart review. On arrival, patient is afebrile, in A-fib with intermittent RVR, GCS 15, moving all extremities spontaneously. Full physical exam performed and significant for laceration as documented above, no trauma to the head or neck noted, no tenderness to the chest spine abdomen or other extremities. Differential diagnosis includes but is not limited to intracranial trauma intrathoracic trauma intra-abdominal trauma spine trauma extremity trauma. I had extensive discussion with patient and family regarding presentation. I recommended she receive trauma imaging and blood work given her fall on blood thinners. She reports that her fall was extremely mild and that she does not want any blood work or CT imaging at this time. I also discussed with her my concern about her heart rate. When I was in the room it was going between 80 and 150. She reports that this is normal for her when she is at the hospital because she gets nervous. I offered her workup about this and she declined. Her EKG was interpreted by me and showed atrial fibrillation with rate of 141, no concerning ischemic changes. Interpreted at 2301. Patient was given a tetanus shot. Radiographs of the right hand was obtained and interpreted by me independently, no evidence of acute fracture. The laceration of the right third digit was copiously irrigated, numbed and repaired with 3 absorbable sutures. Patient was discharged in stable condition with return precautions. Procedures Risk/Benefits of Procedure(s) Were Explained: Yes Laceration Laceration 1: Site: finger (Right third dorsum pip) Side (If applicable): right Description: linear and flap Depth: involves subcutaneous layer Local Anesthetic: lidocaine 1% Amount of anesthesia used (mL): 4 Pre-repair: wound explored, irrigated extensively and deep structures intact Skin layer closed with: other (fast gut) Size (cm): 5-0 Number of sutures: 3 Technique: simple, interrupted Critical Care Critical Care Time Critical Care Time: No
[2024-11-02] MEDS: TET/DIPHTH/PERT-ADULT 0.5ML SYRINGE 0.5 ML IM (23:16)
--- NOTE | 2024-11-02 23:24 | PC.NURSE ---
at bedside to repair laceration under local anesthesia
[2024-11-02 23:44] VITALS: BP 142/94; PULSE 90; RESP 18; TEMP 36.6; O2SAT 96
== END 2024-11-02 23:46 | disposition home or self-care (01) ==
PROVIDERS: Emergency Provider Emergency Medicine
DX: S61.212A Laceration without foreign body of right middle finger without damage to nail, initial encounter (principal); S61.214A Laceration without foreign body of right ring finger without damage to nail, initial encounter; I48.91 Unspecified atrial fibrillation; Z23 Encounter for immunization; Z79.01 Long term (current) use of anticoagulants; W01.0XXA Fall on same level from slipping, tripping and stumbling without subsequent striking against object, initial encounter; Y93.89 Activity, other specified; Y92.009 Unspecified place in unspecified non-institutional (private) residence as the place of occurrence of the external cause
CPT/HCPCS: 12001; 73130; 90471; 90715; 93005; 99284

== ENCOUNTER 2024-12-15 14:45 | Outpatient (CLI) | payer MEDICARE, SELFPAY ==
[2024-12-15 15:31] LABS: Basophils % 0.5 % (0.1-2.0); Eosinophils # 0.1 Kmm3 (0.0-0.4); Eosinophils % 1.7 % (0.1-12.0); Hematocrit 40.9 % (37.0-47.0); Hemoglobin 13.7 g/dL (12.2-16.2); Immature Granulocytes # 0.04 10^3uL; Immature Granulocytes % 0.5 %; Lymphocytes # 1.7 K/mm3 (0.7-4.5); Lymphocytes % 21.2 % (10-50); Mean Corpuscular HGB Conc 33.5 g/dL (31.8-35.4); Mean Corpuscular Hemoglobin 32.9 pg (27.0-31.2); Mean Corpuscular Volume 98.1 fl (81-99); Mean Platelet Volume 9.7 fl (7.4-10.4); Monocytes # 0.7 K/mm3 (0.1-1.0); Monocytes % 8.4 % (1.7-9.3); Neutrophils # 5.4 K/mm3 (1.8-7.8); Neutrophils % 67.7 % (37.0-80.0); Nucleated Red Blood Cells # 0 10^3/uL; Nucleated Red Blood Cells % 0 %; Platelet Count 234 K/mm3 (142-424); Red Blood Count 4.17 M/mm3 (4.20-5.40); Red Cell Distribution Width 13.2 % (11.5-17.5)
[2024-12-15 16:01] LABS: Alanine Aminotransferase 43 U/L (12-78); Albumin Level 4.3 g/dl (3.5-5.0); Alkaline Phosphatase 92 U/L (38-126); Anion Gap 11.2 mEq/L (5-15); Aspartate Amino Transferase 38 U/L (14-36); Bilirubin,Direct 0.1 mg/dl (0.0-0.4); Bilirubin,Indirect 0.3 mg/dL (0.0-0.9); Bilirubin,Total 0.4 mg/dl (0.2-1.3); Bilirubin,Unconjugated 0.3 mg/dL (0.0-1.1); Blood Urea Nitrogen 28 mg/dl (7-17); Calcium 9.5 mg/dl (8.4-10.2); Carbon Dioxide 24 mmol/L (22.0-30.0); Chloride 105 mmol/L (98-107); Chol/HDL Ratio 3.7 (1-3.5); Cholesterol 198 mg/dl (140-200); Estimated Glomerular Filt Rate 60 ml/min (>60); GFR (African American) 73 ML/MIN (>60); Glucose 104 mg/dl (74-100); HDL Cholesterol 53 mg/dl (40-60); Magnesium 2.2 mg/dl (1.6-2.3); Potassium 4.2 mmoL/L (3.5-5.1); Sodium 136 mmol/L (136-145); Total Protein,Serum 6.7 g/dl (6.3-8.2); Triglycerides 294 mg/dl (30-150); VLDL Cholesterol 59 mg/dL (0-40)
[2024-12-15 16:12] LABS: Direct LDL Cholesterol 88.45 mg/dL (100-129)
[2024-12-15 16:18] LABS: Free T4 (Free Thyroxine) 0.96 ng/dl (0.78-2.19)
[2024-12-15 16:31] LABS: Thyroid Stimulating Hormone 2.18 uIU/mL (0.465-4.68)
[2024-12-15 16:50] LABS: Vitamin B12 271 pg/mL (239-931)
[2024-12-15 17:33] LABS: Iron 83 ug/dL (37-170)
[2024-12-15 17:42] LABS: Total Iron Binding Capacity 258 ug/dL (265-497)
[2024-12-15 18:09] LABS: Ferritin 121 ng/ml (11.1-264)
== END 2024-12-15 23:59 | disposition home or self-care (01) ==
PROVIDERS: PCP Nurse Practitioner; Visit Provider Physician Assistant
DX: J96.01 Acute respiratory failure with hypoxia (principal); J96.02 Acute respiratory failure with hypercapnia; I48.91 Unspecified atrial fibrillation; J44.1 Chronic obstructive pulmonary disease with (acute) exacerbation; E78.5 Hyperlipidemia, unspecified; R26.89 Other abnormalities of gait and mobility; R20.0 Anesthesia of skin; F17.200 Nicotine dependence, unspecified, uncomplicated
CPT/HCPCS: 80048; 80061; 80076; 82306; 82607; 82728; 82746; 83540; 83550; 83735; 84425; 84439; 84443; 85025